=== PATIENT | female | born 1975 | race Caucasian/White ===

== ENCOUNTER 2023-10-10 10:46 | Outpatient (OUT) | payer BC, SELFPAY ==
--- NOTE | 2023-10-10 10:49 | VEIN_ITS ---
Patient Name: SHADI ORTIZ MR#: [id number] : 1975 Exam Date: 10/10/2023 Ordering Doctor: DR Dom Bowen . RADIOLOGY REPORT PROCEDURE: VC EXT VENOUS REFLUX KRISTEN LMTD COMPARISON: None. INDICATIONS: Venous stasis I87.8 TECHNIQUE: Duplex imaging of the lower extremity to assess the deep and superficial venous system for the presence of deep or superficial venous incompetence and to document the location and severity of disease. The study includes evaluation of the great saphenous vein (GSV), anterior accessory saphenous vein (AASV) and small saphenous vein (SSV). Patient scanned in reverse Trendelenburg and standing. FINDINGS: RIGHT LOWER EXTREMITY: Saphenofemoral Junction Reflux: Yes 10.3mm 2.3 sec GSV: Diam (mm) Reflux/ Time (sec) Proximal Thigh 10.5 Yes 3.9 Mid Thigh 8.3 Yes 0.7 Distal Thigh 7.6 Yes 0.4 Prox Calf 5.8 Yes 1.2 Mid Calf 4.6 Yes 0.3 Saphenopopliteal Junction Reflux: 4.2mm Yes 1.0 SSV: Proximal Calf 5.0 Yes 0.5 Mid Calf 3.2 Yes 0.3 AASV: Proximal Thigh 7.3 Yes 1.0 Mid Thigh 4.3 Yes 0.6 Distal Thigh Thrombi: No acute or chronic thrombus. Compressibility: Normal. Flow: Moderate deep venous reflux. Preforator: Dist/medial lower leg measures 4.3 mm with 0.4s reflux. Tech Note: Incompetent varicose vein mid posterior lower leg varicose vein measures 4.7 mm with 1.1s reflux. Varicose vein proximal medial lower leg measures 3.2 mm with 0.6s reflux. Distal medial/anterior thigh varicose vein measures 4.0 mm with 0.5s reflux. LEFT LOWER EXTREMITY: Saphenofemoral Junction Reflux: Yes 9.0 mm 1.2 sec GSV: Diam (mm) Reflux/Time (sec) Proximal Thigh 10.8 Yes 1.0 Mid Thigh 7.1 Yes 1.1 Distal Thigh 6.6 Yes 0.4 Prox Calf 4.8 Yes 3.6 Mid Calf 4.2 Yes 2.4 Saphenopopliteal Junction Relux: 4.3 mm Yes 0.4 SSV: Proximal Calf 4.1 Yes 0.3 Mid Calf 3.6 Yes 0.3 AASV: Not present Thrombi: No acute or chronic thrombus. Compressibility: Normal. Flow: Moderate deep venous reflux. Receptionist Airline Lounge: Distal medial lower leg measures 4.4 mm with 2.7s reflux. Tech Note: Incompetent varicose vein distal medial thigh measures 4.0 mm with 0.9s reflux. Proximal medial lower leg varicose vein measures 4.8 mm with 2.0s reflux. CONCLUSION: 1. Moderate to severe bilateral venous insufficiency in the great saphenous veins with diligation and saphenofemoral junction reflux 2. Mild right small and anterior accessory saphenous veins 3. Moderate deep vein reflux 4. Bilateral incompetent varicose veins Dictated by: Adolph Browne MD on 10/10/2023 at 12:41 Approved by: Adolph Browne MD on 10/10/2023 at 12:43
== END 2023-10-10 10:47 | disposition home or self-care (01) ==
LOC: VC 10:46
PROVIDERS: PCP Family Medicine; Visit Provider Family Medicine
DX: I87.8 Other specified disorders of veins (principal); I87.2 Venous insufficiency (chronic) (peripheral); I83.93 Asymptomatic varicose veins of bilateral lower extremities
CPT/HCPCS: 93970

== ENCOUNTER 2023-10-10 11:49 | Outpatient (OUT) | payer BC, SELFPAY ==
[2023-10-10 12:22] LABS: Basophils Percent Auto 0.5 % (0.2-2.0); Eosinophils Absolute Auto 0.2 10^3/uL (0.0-0.7); Eosinophils Percent Auto 2.1 % (0.9-7.0); Hematocrit 41.7 % (36.0-48.0); Hemoglobin 13.7 g/dL (12.0-16.0); Immature Granulocytes Abs Auto 0.02 10^3/uL (0.00-0.03); Immature Granulocytes Pct Auto 0.2 % (0.0-0.5); Lymphocytes Absolute Auto 1.8 10^3/uL (1.2-3.8); Lymphocytes Percent Auto 21.5 % (20.5-60.0); Mean Corpuscular HGB Conc 32.9 g/dL (29.9-35.2); Mean Corpuscular Hemoglobin 29.2 pg (26.7-34.0); Mean Corpuscular Volume 88.9 fL (81.0-99.0); Mean Platelet Volume 9.2 fL (9.5-13.5); Monocytes Absolute Auto 0.6 10^3/uL (0.3-0.8); Monocytes Percent Auto 6.9 % (1.7-12.0); Neutrophils Absolute Auto 5.9 10^3/uL (1.4-6.5); Neutrophils Percent Auto 68.8 % (43.0-75.0); Platelet Count 183 10^3/uL (150-450); Red Blood Count 4.69 10^6/uL (4.20-5.40); Red Cell Distribution Width 12.3 % (11.0-15.0); White Blood Count 8.6 10^3/uL (4.0-11.0)
[2023-10-10 12:56] LABS: Alanine Aminotransferase 69 U/L (14-59); Albumin Globulin Ratio 0.9; Albumin Level 3.4 g/dL (3.4-5.0); Alkaline Phosphatase 109 U/L (46-116); Anion Gap 11.3; Aspartate Amino Transferase 73 U/L (15-37); BUN Creatinine Ratio 19.7; Bilirubin Total 0.7 mg/dL (0.2-1.0); Calcium 8.8 mg/dL (8.5-10.1); Carbon Dioxide 27.9 mmol/L (21.0-32.0); Chloride 103 mmol/L (98-107); Chol HDL Ratio 3.7; Cholesterol 204 mg/dL (<=200); Estimated GFR (African America >60 (>=60); Estimated GFR (Non-African Ame >60 (>=60); Free T3 3.06 pg/mL (2.18-3.98); Globulin 3.9 g/dL; Glucose 98 mg/dL (74-106); HDL Cholesterol 55 mg/dL (40-60); Potassium 4.2 mmol/L (3.5-5.1); Sodium 138 mmol/L (136-145); Thyroid Stimulating Hormone 1.217 uIU/mL (0.358-3.740); Total Protein 7.3 g/dL (6.4-8.2); Triglycerides 90 mg/dL (<=150)
[2023-10-10 12:57] LABS: Estimated Average Glucose 108 mg/dL; Glycohemoglobin A1C 5.4 % (4.5-6.2)
== END 2023-10-10 11:50 | disposition home or self-care (01) ==
LOC: LAB 11:50
PROVIDERS: PCP Family Medicine; Visit Provider Family Medicine
DX: Z00.00 Encounter for general adult medical examination without abnormal findings (principal); I87.8 Other specified disorders of veins; I87.2 Venous insufficiency (chronic) (peripheral); I83.93 Asymptomatic varicose veins of bilateral lower extremities; E78.5 Hyperlipidemia, unspecified; R73.09 Other abnormal glucose; Z12.12 Encounter for screening for malignant neoplasm of rectum; D64.9 Anemia, unspecified
CPT/HCPCS: 36415; 80053; 80061; 83036; 83525; 83540; 84436; 84443; 84481; 85025; 93970

== ENCOUNTER 2023-10-13 14:38 | Outpatient (OUT) | payer BC, SELFPAY ==
--- NOTE | 2023-10-13 14:45 | VEIN_ITS ---
Patient Name: SHADI ORTIZ MR#: [id number] : 1975 Exam Date: 10/13/2023 Ordering Doctor: DR Dom Bowen . RADIOLOGY REPORT PROCEDURE: VC [facility] EST [facility] - OFFICE VISIT INITIAL COMPARISON: None. PROGRESS NOTES: [age] year old female who presents with a 4 year history of lower extremity swelling, pain, muscle cramping. The patient's leg symptoms are symmetric bilaterally. There has been a progression of symptoms over time. This increases with prolonged leg dependency. The patient describes an improvement with rest, elevation, support stockings, and Tylenol. The patient denies any signs and symptoms to suggest arterial ischemia. The patient describes a family history varicose veins on paternal side. The patient has drinking and smoking history of occasional alcohol consumption; former smoker. Patient has a past medical history significant for hypertension, obesity. The patient denies a history of deep venous thrombus or pulmonary embolus. See separate history and physical for medication list. No prior treatment for varicose or spider veins. Current use of compression stockings. After review of nurse notes, history and physical exam I discussed at length the pathophysiology of venous hypertension and possible treatments, therapies and strategies available. We discussed at length the importance of elevating the lower extremities above the level of the heart, increased physical activity and compression stocking use. Ultrasound venous reflux study performed on October 10, 2023 was discussed at length with the patient. The report demonstrates abnormally dilated and incompetent right great saphenous vein, right anterior accessory saphenous vein, and left great saphenous vein. Left lower extremity dilated incompetent etcher photoengraving vein. Bilateral lower extremity incompetent branch saphenous varicosities. PHYSICAL EXAM: The right leg demonstrates no significant varicosities, a few scattered spider veins, no ulceration, marked edema, no skin discoloration. The left leg demonstrates no significant varicosities, a few scattered spider veins, no ulceration, marked edema, no skin discoloration. Both thighs, legs and feet were symmetrically warm to the touch. Good posterior tibial and dorsalis pedis pulses were present bilaterally. VEIN/VC Facility EST Comprehensive IMPRESSION: 1. Bilateral lower extremity venous insufficiency 2. Bilateral lower extremity varicose veins 3. Marked bilateral lower extremity subcutaneous edema 4. No flow significant arterial disease 5. CEAP: C3, EC, AP, SD PLAN: 1. Continued use of compression stockings 2. Elevated legs and increased physical activity symptomatic relief 3. Endovenous laser ablation of right great saphenous, left great saphenous, right small saphenous veins. 4. Microfoam chemical ablation of bilateral incompetent branch saphenous varicosities. Nurse notes, history and physical were reviewed and confirmed, see attached forms. The nurse was present throughout the physical exam and consultation Dictated by: Mitchell Tilley M.D. on 10/13/2023 at 15:56 Approved by: Mitchell Tilley M.D. on 10/13/2023 at 16:01
== END 2023-10-13 14:39 | disposition home or self-care (01) ==
LOC: VC 14:39
PROVIDERS: PCP Family Medicine; Visit Provider Family Medicine
DX: I87.2 Venous insufficiency (chronic) (peripheral) (principal)
CPT/HCPCS: G0463

== ENCOUNTER 2024-01-30 03:31 | Emergency (ER) | payer BC, SELFPAY ==
[2024-01-30 03:37] VITALS: BP 168/103; PULSE 102; TEMP 37.1; O2SAT 97; BMI 44.3
--- NOTE | 2024-01-30 03:55 | ED.FEMALEGU1 ---
HPI - Female Genitourinary General Chief complaint: Urogenital-Female Stated complaint: UTI Hematuria Time Seen by Provider: 01/30/24 03:40 Source: patient Mode of arrival: walk-in Limitations: no limitations History of Present Illness HPI Narrative: presents complaining of dysuria and flank pain. symptoms started 5 days ago. She took OTC medication to treat the discomfort and thought she was better. Now has flank pain. No fever but has hematuria and right flank pain Related Data Home Medications ?Medication ?Instructions ?Recorded ?Confirmed amlodipine 5 mg tablet 5 mg PO DAILY 01/30/24 01/30/24 carvedilol 25 mg tablet 25 mg PO Q12H 01/30/24 01/30/24 clonidine HCl 0.1 mg tablet 0.1 mg PO Q8H 01/30/24 01/30/24 phentermine 37.5 mg tablet 37.5 mg PO DAILY 01/30/24 01/30/24 Allergies Allergy/AdvReac Type Severity Reaction Status Date / Time No Known Drug Allergies Allergy Verified 01/30/24 03:42 Review of Systems ROS Status of ROS 10 or more systems reviewed and unremarkable except as noted in history and below [facility] Medical History (Updated 01/30/24 @ 05:29 by Darvin Pantoja MD) HTN (hypertension) ?I10 - Essential (primary) hypertension (ICD-10) Exam Constitutional Vital Signs, click to edit/add: Last Vital Signs Temp 98.8 F 01/30/24 03:37 Pulse 102 H 01/30/24 03:37 Resp 20 01/30/24 03:37 BP 168/103 H 01/30/24 03:37 Pulse Ox 97 01/30/24 03:37 O2 Del Method Room Air 01/30/24 03:37 Common normals: no apparent distress, average body habitus, oriented x3, no limitations, healthy appearing, alert and well nourished [facility] [place] Common normals: normocephalic and head/scalp atraumatic Eye Common normals: PERRL, EOMs intact bilaterally and conjunctivae normal Respiratory Common normals: normal respiratory effort, no retractions, no use of accessory muscles and clear to auscultation bilaterally Cardio Common normals: regular rate, regular rhythm, S1 normal heart sound and S2 normal heart sound GI Common normals: Normal to inspection, nondistended, normoactive bowel sounds present Other: right flank tenderness Extremity Common normals: normal to inspection and full ROM Neuro Common normals: oriented x3, CN's II-XII intact bilaterally, moves all extremities and no focal motor deficits Psych Appearance: grossly normal Course Vital Signs Vital signs: Vital Signs Temperature 98.8 F 01/30/24 03:37 Pulse Rate 102 H 01/30/24 03:37 Respiratory Rate 20 01/30/24 03:37 Blood Pressure 168/103 H 01/30/24 03:37 Pulse Oximetry 97 01/30/24 03:37 Oxygen Delivery Method Room Air 01/30/24 03:37 Temperature 98.8 F 01/30/24 03:37 Pulse Rate 102 H 01/30/24 03:37 Respiratory Rate 20 01/30/24 03:37 Blood Pressure 168/103 H 01/30/24 03:37 Pulse Oximetry 97 01/30/24 03:37 Oxygen Delivery Method Room Air 01/30/24 03:37 MDM - Female Genitourinary MDM Narrative Medical decision making narrative: presents with flank pain and UTI dysuria. CT without findings of stone or pyelo. UA positive and WBC elevated. Patient hydrated and also given dose of Rocephin and discharged home to followup with her doctor Lab Data Labs: Lab Results 01/30/24 01/30/24 Range/Units 03:47 04:12 WBC 14.2 H (4.0-11.0) 10^3/uL RBC 4.95 (4.20-5.40) 10^6/uL Hgb 15.0 (12.0-16.0) g/dL Hct 44.4 (36.0-48.0) % MCV 89.7 (81.0-99.0) fL MCH 30.3 (26.7-34.0) pg MCHC 33.8 (29.9-35.2) g/dL RDW 12.9 (11.0-15.0) % Plt Count 174 (150-450) 10^3/uL MPV 9.2 L (9.5-13.5) fL Neut % (Auto) 87.7 H (43.0-75.0) % Lymph % (Auto) 6.4 L (20.5-60.0) % [place] % (Auto) 4.4 (1.7-12.0) % Eos % (Auto) 0.8 L (0.9-7.0) % Baso % (Auto) 0.3 (0.2-2.0) % Neut # (Auto) 12.5 H (1.4-6.5) 10^3/uL Lymph # (Auto) 0.9 L (1.2-3.8) 10^3/uL [place] # (Auto) 0.6 (0.3-0.8) 10^3/uL Eos # (Auto) 0.1 (0.0-0.7) 10^3/uL Baso # (Auto) 0.0 (0.0-0.1) 10^3/uL Abs Immat Gran (auto) 0.05 H (0.00-0.03) 10^3/uL Imm/Tot Granulo (auto) 0.4 (0.0-0.5) % Sodium 136 (136-145) mmol/L Potassium 3.6 (3.5-5.1) mmol/L Chloride 100 (98-107) mmol/L Carbon Dioxide 25.7 (21.0-32.0) mmol/L Anion Gap 13.9 BUN 10.0 (7.0-18.0) mg/dL Creatinine 0.80 (0.55-1.02) mg/dL Est GFR ( Amer) >60 (>=60) Est GFR (Non-Af Amer) >60 (>=60) BUN/Creatinine Ratio 12.5 Glucose 114 H (74-106) mg/dL Calcium 8.9 (8.5-10.1) mg/dL Total Bilirubin 0.8 (0.2-1.0) mg/dL AST 27 (15-37) U/L ALT 52 (14-59) U/L Alkaline Phosphatase 124 H (46-116) U/L Total Protein 8.0 (6.4-8.2) g/dL Albumin 3.9 (3.4-5.0) g/dL Globulin 4.1 g/dL Albumin/Globulin Ratio 1.0 Lipase 26.0 (16.0-77.0) U/L Urine Color Lt. yellow (YELLOW) Urine Clarity Clear (CLEAR) Urine pH 7.5 (5.0-9.0) Ur Specific [place] 1.020 (1.005-1.025) Urine Protein Negative (NEG/TRACE) mg/dL Urine Glucose (UA) Negative (NEGATIVE) mg/dL Urine Ketones Negative (NEGATIVE) mg/dL Urine Occult Blood Small A (NEGATIVE) Urine Nitrite Negative (NEGATIVE) Urine Bilirubin Negative (NEGATIVE) Urine Urobilinogen 0.2 (0.2-1.0) EU/dL Ur Leukocyte Esterase Trace A (NEGATIVE) Urine RBC 2-5 A (0-2) #/HPF Urine WBC 20-50 A (NONE SEEN) #/HPF Ur Squamous Epith Cells Few A (NONE/RARE) #/LPF Urine Crystals None seen (None Seen) #/HPF Urine Bacteria Small A (NONE SEEN) #/HPF Urine Casts None seen (NONE SEEN) #/LPF Urine Mucus Small A (NONE SEEN) Ur Culture Indicated? Yes Imaging Data Abdominal x-ray: Radiologist's impression: ITS Impressions Abdomen/Pelvis CT 01/30/24 04:01 IMPRESSION: There is no renal calculus or obstructive uropathy. The 0.2 cm calcification near the central sinus fat of the left kidney is vascular. The urinary bladder is unremarkable. The liver is enlarged and fatty infiltrated measuring 19.7 cm in longitudinal dimension. There is mild splenomegaly measuring 14.1 cm in AP dimension. Nonobstructive bowel gas pattern with a moderate amount of stool within the colon. The appendix is unremarkable. There is no free air, free fluid or inflammatory reaction. There are a couple surgical clips within the left adnexa region. There is no surgical clip within the right adnexal region. Correlate with the surgical history. Electronically authenticated by: OMKAR ZAPATA Date: 01/30/2024 04:55 Discharge Plan Discharge Stand Alone Forms: Portal Instructions Chief Complaint: Urogenital-Female Clinical Impression: Urinary tract infection Patient Disposition: Home, Self-Care Prescriptions / Home Meds: No Action amlodipine 5 mg tablet 5 mg PO DAILY clonidine HCl 0.1 mg tablet 0.1 mg PO Q8H carvedilol 25 mg tablet 25 mg PO Q12H phentermine 37.5 mg tablet 37.5 mg PO DAILY Print Language: Maltese Instructions: Urinary Tract Infection in Women (ED) Additional Instructions: drink plenty of fluids and follow up with your doctor in 2-3 days for recheck Referrals: Dom Bowen MD [Primary Care Provider] - 1 week
--- OUTSIDE RECORDS SUMMARY | 2024-01-30 03:57 | XMS_ITS | CCD ---
Author Organization [facility] Care Team Providers Care Commercial Lease Administrator Name Role Phone NONE, XXXX Primary Care Physician Unavailab Ila Valle Primary Care Physician Braxton Chapa Attending Unavailable Braxton Chapa Attending Unavailable REFERRAL, SELF Referring Unavailable Jojo Burr Attending Unavailable Jojo Burr Admitting Unavailable CHANTELLE, DR COLÓN Attending Unavailable CHANTELLE, DR COLÓN Consulting Unavailable KAREN, DR LAMB Primary Care Unavailable CHANTELLE, DR COLÓN Admitting Unavailable Omkar Plummer Consulting Unavailable KAREN, DR LAMB Primary Care Unavailable CHANTELLE, DR COLÓN Admitting Unavailable CHANTELLE, DR COLÓN Attending Unavailable CHANTELLE, DR COLÓN Consulting Unavailable CHANTELLE, DR COLÓN Admitting Unavailable KAREN, DR LAMB Primary Care Unavailable CHANTELLE, DR COLÓN Attending Unavailable Medications Current Medications Medication Drug Class(es) Dates Sig (Normalized) Sig (Original) albuterol 0.83 mg/ml inhalation solution (1 source) beta2-Adrenergic Agonist Start: 07-05-2022 take 2.5 mg by inhalation every six hours for wheezing albuterol 0.083% Inh Rosario 3 mL 2.5 mg, 3 mL, Inhalation, q6hr for wheezing, 25 EA, Refill(s) 0, [facility]/pharmacy #[id number], 160, cm, 07/05/22 16:21:00 EST, Height/Length Dosing, 117.9, kg, 07/05/22 16:21:00 EST, Weight Dosing Start Date: 07/05/22 Status: Ordered brompheniramine maleate 0.4 mg/ml / dextromethorphan hydrobromide 2 mg/ml / pseudoephedrine hydrochloride 6 mg/ml oral solution (1 source) alpha-Adrenergic Agonist, Uncompetitive V-karyhq-I-aspartat e Receptor Antagonist, Sigma-1 Agonist Start: 07-05-2022 take 5 mL by mouth four times daily for cough and congestion Bromfed DM oral syrup 5 mL, Oral, QID for cough and congestion, 200 mL, Refill(s) 0, [facility]/pharmacy #[id number], 160, cm, 07/05/22 16:21:00 EST, Height/Length Dosing, 117.9, kg, 07/05/22 16:21:00 EST, Weight Dosing Start Date: 07/05/22 Status: Ordered buprenorphine 8 mg / naloxone 2 mg sublingual film (2 sources) Partial Opioid Agonist, Opioid Antagonist Start: 01-30-2020 Suboxone 8 mg-2 mg sublingual film SubLingual, BID, Refill(s) 0 Start Date: 01/30/20 Status: Ordered Colace (3 sources) Start: 01-30-2020 Colace Oral, BID, Refills(s) 0 Start Date: 01/30/20 Status: Ordered ibuprofen 600 mg oral tablet (3 sources) Nonsteroidal Anti-inflammatory Drug Start: 01-30-2020 take 1 tablet by mouth every six hours ibuprofen 600 mg Tab 600 mg = 1 tab(s), Oral, q6hr, # 15 tab(s), Refills(s) 0 Start Date: 01/30/20 Status: Ordered labetalol hydrochloride 300 mg oral tablet (3 sources) beta-Adrenergic Ely Start: 01-30-2020 take 1 tablet by mouth three times daily labetalol 300 mg Tab 300 mg = 1 tab(s), Oral, TID, Refills(s) 0 Start Date: 01/30/20 Status: Ordered predniSONE 50 mg oral tablet (1 source) Start: 07-05-2022 End: 07-10-2022 take 1 tablet by mouth once daily predniSONE 50 mg Tab 50 mg = 1 tab(s), Oral, Daily, X 5 day(s), # 5 tab(s), Refills(s) 0, Pharmacy: [facility]/pharmacy #[id number], 160, cm, 07/05/22 16:21:00 EST, Height/Length Dosing, 117.9, kg, 07/05/22 16:21:00 EST, Weight Dosing Start Date: 07/05/22 Stop Date: 07/10/22 Status: Ordered Completed/Discontinued Medications Medication Drug Class(es) Dates Sig (Normalized) Sig (Original) albuterol HFA 90 mcg/inh MDI (3 sources) Start: 11-22-2018 take 1 dose by inhalation four times daily albuterol HFA 90 mcg/inh MDI 2 puff(s), Inhalation, QID, 1 EA, Refill(s) 0 Start Date: 11/22/18 Status: Ordered Problems Active Problems Problem Classification Problem Date Documented Da te Episodic/Chronic Acute bronchitis (4 sources) Acute bronchitis, unspecified; Translations: [ACUTE BRONCHITIS UNSPECIFIED] Onset: 07-09-2022 Episodic Chronic obstructive pulmonary disease and bronchiectasis (6 sources) Chronic obstructive pulmonary disease with (acute) lower respiratory infection; Translations: [Chronic obstructive pulmonary disease with (acute) exacerbation] Onset: 10-06-2021 Chronic Chronic obstructive pulmonary disease and bronchiectasis (1 source) Bronchitis; Translations: [Bronchitis, not specified as acute or chronic] Onset: 07-05-2022 Episodic Congestive heart failure; nonhypertensive (1 source) Unspecified diastolic (congestive) heart failure; Translations: [UNSPECIFIED DIASTOLIC HEART FAILURE] Onset: 10-07-2021 Chronic Endometriosis (3 sources) Endometriosis (clinical) 10-19-2013 Chronic Essential hypertension (2 sources) Essential hypertension; Translations: [Essential (primary) hypertension] Onset: 03-05-2022 Chronic Fluid and electrolyte disorders (1 source) Hypokalemia; Translations: [HYPOKALEMIA] Onset: 07-19-2022 Episodic Hypertension complicating ; childbirth and the puerperium (3 sources) Pre-eclampsia 08-07-2014 Episodic Hypertension with complications and secondary hypertension (1 source) Hypertensive heart disease with heart failure; Translations: [HTN HEART DISEASE W/HEART FAIL] Onset: 10-07-2021 Chronic Nonspecific chest pain (1 source) Chest pain; Translations: [Chest pain, unspecified] Onset: 03-05-2022 Episodic Other lower respiratory disease (1 source) Acute respiratory distress; Translations: [ACUTE RESPIRATORY DISTRESS] Onset: 07-19-2022 Episodic Other lower respiratory disease (1 source) Shortness of breath; Translations: [SHORTNESS OF BREATH] Onset: 07-19-2022 Episodic Other screening for suspected conditions (not mental disorders or infectious disease) (1 source) Other specified abnormal findings of blood chemistry; Translations: [OTH SPEC ABNORMAL FINDINGS BLD CHEM] Onset: 07-19-2022 Episodic Other upper respiratory infections (1 source) Acute upper respiratory infection; Translations: [Acute upper respiratory infection, unspecified] Onset: 07-05-2022 Episodic Substance-related disorders (4 sources) Smoker; Translations: [Nicotine dependence, cigarettes, uncomplicated] Onset: 07-19-2022 08-07-2014 Chronic Comment on above: Added secondary to d ocumentation in Social History. Unclassified (1 source) CONTACT W/AND (SUSP) EXPOS COVID-19; Translations: [CONTACT W/AND (SUSP) EXPOS COVID-19] Onset: 07-19-2022 Urinary tract infections (3 sources) Urinary tract infectious disease 05-31-2010 Episodic Past or Other Problems Problem Classification Problem Date Documented Da te Episodic/Chronic Deficiency and other anemia (1 source) Anemia, unspecified; Translations: [ANEMIA UNSPECIFIED] Onset: 10-07-2021 Episodic Diabetes mellitus without complication (1 source) Other abnormal glucose; Translations: [OTHER ABNORMAL GLUCOSE] Onset: 10-07-2021 Episodic Unclassified (1 source) Exposure to 2019 novel coronavirus; Translations: [Contact with and (suspected) exposure to COVID19] Results Test Name Value Interpretation Reference Range Facility CBC AUTO DIFFon 07-10-2022 BASO # 0.0 103/ul Normal 0.0-0.1 [facility] Comment on above: Performed By: #### A 1C #### [facility] [address] [place] [address] Dr. Jojo Burr Basophils/100 WBC (Bld) 0.3 % Normal 0.2-2.0 [facility] Comment on above: Performed By: #### A 1C #### [facility] [address] [place] [address] Dr. Jojo Burr EO # 0.0 103/ul Normal 0.0-0.7 [facility] Comment on above: Performed By: #### A 1C #### [facility] [address] [place] [address] Dr. Jojo Burr Eosinophils/100 WBC (Bld) 0.0 % Critically low 0.9-7.0 [facility] Comment on above: Performed By: #### A 1C #### [facility] [address] [address] [address] Jojo Burr Erythrocyte distribution width (RBC) [Ratio] 12.5 % Normal 11.0-15.0 [facility] Comment on above: Performed By: #### A 1C #### [facility] [address] [address] [address] Jojo Burr Hematocrit (Bld) [Volume fraction] 41.7 % Normal 36.0-48.0 [facility] Comment on above: Performed By: #### A 1C #### [facility] [address] [address] [address] Jojo Burr Hemoglobin (Bld) [Mass/Vol] 13.8 g/dL Normal 12.0-16.0 [facility] Comment on above: Performed By: #### A 1C #### [facility] [address] [place] [address] Dr. Jojo Burr IG # 0.15 10e3/ul Critically high 0.00-0.03 [facility] Comment on above: Performed By: #### A 1C #### [facility] [address] [address] [address] Jojo Burr IG % 1.3 % Critically high 0.0-0.5 [facility] Comment on above: Performed By: #### A 1C #### [facility] [address] [address] [address] Jojo Burr LYMPH # 0.8 103/ul Critically low 1.2-3.8 [facility] Comment on above: Performed By: #### A 1C #### [facility] [address] [address] [address] Jojo Burr Lymphocytes/100 WBC (Bld) 7.0 % Critically low 20.5-60.0 [facility] Comment on above: Performed By: #### A 1C #### [facility] [address] [address] [address] Jojo Burr MANUAL DIFF REQ NO Normal [facility] Comment on above: Performed By: #### A 1C #### [facility] [address] [place] [address] Dr. Jojo Burr MCH (RBC) [Entitic mass] 29.6 pg Normal 26.7-34.0 [facility] Comment on above: Performed By: #### A 1C #### [facility] [address] [place] [address] Dr. Jojo Burr MCHC (RBC) [Mass/Vol] 33.1 g/dL Normal 29.9-35.2 [facility] Comment on above: Performed By: #### A 1C #### [facility] [address] [place] [address] Dr. Jojo Burr MCV (RBC) [Entitic vol] 89.5 fL Normal 81.0-99.0 [facility] Comment on above: Performed By: #### A 1C #### [facility] [address] [place] [address] Dr. Jojo Burr MONO # 0.4 103/ul Normal 0.3-0.8 [facility] Comment on above: Performed By: #### A 1C #### [facility] [address] [place] [address] Dr. Jojo Burr Monocytes/100 WBC (Bld) 3.4 % Normal 1.7-12.0 [facility] Comment on above: Performed By: #### A 1C #### [facility] [address] [place] [address] Dr. Jojo Burr NEUT # 10.3 103/ul Critically high 1.4-6.5 [facility] Comment on above: Performed By: #### A 1C #### [facility] [address] [place] [address] Dr. Jojo Burr Neutrophils/100 WBC (Bld) 88.0 % Critically high 43.0-75.0 [facility] Comment on above: Performed By: #### A 1C #### [facility] [address] [place] [address] Dr. Jojo Burr Platelet mean volume (Bld) [Entitic vol] 9.1 fL Critically low 9.5-13.5 [facility] Comment on above: Performed By: #### A 1C #### [facility] [address] [place] [address] Dr. Jojo Burr PLT 226 103/ul Normal 150-450 [facility] Comment on above: Performed By: #### A 1C #### [facility] [address] [place] [address] Dr. Jojo Burr RBC 4.66 106/ul Normal 4.20-5.40 [facility] Comment on above: Performed By: #### A 1C #### [facility] [address] [place] [address] Dr. Jojo Burr WBC 11.7 103/ul Critically high 4.0-11.0 [facility] Comment on above: Performed By: #### A 1C #### [facility] [address] [place] [address] Dr. Jojo Burr PROF 14(COMP METB)on 022 Albumin [Mass/Vol] 3.1 g/dL Critically low 3.4-5.0 [facility] Comment on above: Performed By: #### C MP #### [facility] [address] [place] [address] Dr. Jojo Burr Albumin/Globulin [Mass ratio] 0.8 {ratio} Normal [facility] Comment on above: Performed By: #### C MP #### [facility] [address] [place] [address] Dr. Jojo Burr ALP [Catalytic activity/Vol] 118 U/L Critically high 46-116 [facility] Comment on above: Performed By: #### C MP #### [facility] [address] [place] [address] Dr. Jojo Burr ALT [Catalytic activity/Vol] 79 U/L Critically high 14-59 [facility] Comment on above: Performed By: #### C MP #### [facility] [address] [place] [address] Dr. Jojo Burr Anion gap [Moles/Vol] 11.7 mmol/L Normal [facility] Comment on above: Performed By: #### C MP #### [facility] [address] [place], [place] [address] Dr. Jojo Burr AST [Catalytic activity/Vol] 31 U/L Normal 15-37 [facility] Comment on above: Performed By: #### C MP #### [facility] [address] [address] [address] Jojo Burr Bilirubin [Mass/Vol] 0.4 mg/dL Normal 0.2-1.0 [facility] Comment on above: Performed By: #### C MP #### [facility] [address] [address] [address] Jojo Burr Calcium [Mass/Vol] 8.7 mg/dL Normal 8.5-10.1 [facility] Comment on above: Performed By: #### C MP #### [facility] [address] [place] [address] Dr. Jojo Burr Chloride [Moles/Vol] 101 mmol/L Normal 98-107 [facility] Comment on above: Performed By: #### C MP #### [facility] [address] [place] [address] Dr. Jojo Burr CO2 [Moles/Vol] 29.8 mmol/L Normal 21.0-32.0 [facility] Comment on above: Performed By: #### C MP #### [facility] [address] [place] [address] Dr. Jojo Burr Creatinine [Mass/Vol] 0.68 mg/dL Normal 0.55-1.02 [facility] Comment on above: Performed By: #### C MP #### [facility] [address] [place] [address] Dr. Jojo Burr EGFR-AF FILIPINO >60 Normal >=60 [facility] Comment on above: Performed By: #### C MP #### [facility] [address] [place] [address] Dr. Jojo Burr EGFR-NON AF FILIPINO >60 Normal >=60 [facility] Comment on above: Performed By: #### C MP #### [facility] [address] [place] [address] Dr. Jojo Burr Globulin (S) [Mass/Vol] 3.8 g/dL Normal [facility] Comment on above: Performed By: #### C MP #### [facility] [address] [address] [address] Jojo Burr Glucose [Mass/Vol] 146 mg/dL Critically high 74-106 [facility] Comment on above: Performed By: #### C MP #### [facility] [address] [address] [address] Jojo Burr Potassium [Moles/Vol] 3.5 mmol/L Normal 3.5-5.1 [facility] Comment on above: Performed By: #### C MP #### [facility] [address] [address] [address] Jojo Burr Protein [Mass/Vol] 6.9 g/dL Normal 6.4-8.2 [facility] Comment on above: Performed By: #### C MP #### [facility] [address] [address] [address] Jojo Burr Sodium [Moles/Vol] 139 mmol/L Normal 136-145 [facility] Comment on above: Performed By: #### C MP #### [facility] [address] [address] [address] Jojo Burr Urea nitrogen [Mass/Vol] 15.0 mg/dL Normal 7.0-18.0 [facility] Comment on above: Performed By: #### C MP #### [facility] [address] [address] [address] Jojo Burr Urea nitrogen/Creatinine [Mass ratio] 22.1 mg/mg Normal [facility] Comment on above: Performed By: #### C MP #### [facility] [address] [address] [address] Jojo Burr BNPon 07-09-2022 Natriuretic peptide B (Bld) [Mass/Vol] 205.0 pg/mL Normal <=450.0 [facility] Comment on above: Performed By: #### C BCMAN #### [facility] [address] [address] [address] Jojo Burr CARDIAC CATINA 3-6on 2 CK [Catalytic activity/Vol] 144 U/L Normal 26-192 [facility] Comment on above: Performed By: #### Madhav NEAL #### [facility] [address] [place] [address] Dr. Jojo Burr CK.MB [Mass/Vol] 1.97 ng/mL Normal <=3.60 [facility] Comment on above: Performed By: #### Madhav NEAL #### [facility] [address] [place] [address] Dr. Jojo Burr HSTROP 9.0 pg/mL Normal 4.0-51.3 [facility] Comment on above: Result Comment: CUT- OFF POINTS HAVE BEEN ESTABLISHED BASED ON THE FOURTH UNIVERSAL DEFINITIONS OF MYOCARDIAL INFARCTION. THE UPPER REFERENCE LIMIT (URL) OF TROPONIN, DEFINED THE 99TH PERCENTILE OF cTnI DISTRIBUTION IN A REFERENCE POPULATION, HAS BEEN CONFIRMED THE DECISION THRESHOLD FOR [place] DIAGNOSIS. Performed By: #### Madhav NEAL #### [facility] [address] [place] [address] Dr. Jojo Burr CK [Catalytic activity/Vol] 131 U/L Normal 26-192 [facility] Comment on above: Performed By: #### Madhav NEAL #### [facility] [address] [place] [address] Dr. Jojo Burr CK.MB [Mass/Vol] 2.23 ng/mL Normal <=3.60 [facility] Comment on above: Performed By: #### C ÁNGEL #### [facility] [address] [place] [address] Dr. Jojo Burr HSTROP 7.8 pg/mL Normal 4.0-51.3 [facility] Comment on above: Result Comment: CUT- OFF POINTS HAVE BEEN ESTABLISHED BASED ON THE FOURTH UNIVERSAL DEFINITIONS OF MYOCARDIAL INFARCTION. THE UPPER REFERENCE LIMIT (URL) OF TROPONIN, DEFINED THE 99TH PERCENTILE OF cTnI DISTRIBUTION IN A REFERENCE POPULATION, HAS BEEN CONFIRMED THE DECISION THRESHOLD FOR TN DIAGNOSIS. Performed By: #### Madhav NEAL #### [facility] [address] [place] [address] Dr. Jojo Burr CARDIAC CATINA ADMITon 022 CK [Catalytic activity/Vol] 122 U/L Normal 26-192 [facility] Comment on above: Performed By: #### B SEAMAN, CMP, CMADM #### [facility] [address] [place] [address] Dr. Jojo Burr CK.MB [Mass/Vol] 2.40 ng/mL Normal <=3.60 [facility] Comment on above: Performed By: #### B SEAMAN, CMP, CMADM #### [facility] [address] [place] [address] Dr. Jojo Burr HSTROP 8.0 pg/mL Normal 4.0-51.3 [facility] Comment on above: Result Comment: CUT- OFF POINTS HAVE BEEN ESTABLISHED BASED ON THE FOURTH UNIVERSAL DEFINITIONS OF MYOCARDIAL INFARCTION. THE UPPER REFERENCE LIMIT (URL) OF TROPONIN, DEFINED THE 99TH PERCENTILE OF cTnI DISTRIBUTION IN A REFERENCE POPULATION, HAS BEEN CONFIRMED THE DECISION THRESHOLD FOR TN DIAGNOSIS. Performed By: #### B SEAMAN, CMP, CMADM #### [facility] [address] [place] [address] Dr. Jojo Burr LIZZY 70 ng/mL Normal 9-82 [facility] Comment on above: Performed By: #### B SEAMAN, CMP, CMADM #### [facility] [address] [place] [address] Dr. Jojo Burr CBC W MANUAL DIFFon 07-09-20 22 ATYPICAL LYMPH # Normal [facility] Comment on above: Performed By: #### C ÁNGEL #### [facility] [address] [place] [address] Dr. Jojo Burr ATYPICAL LYMPH % Normal [facility] Comment on above: Performed By: #### C BCMAN #### [facility] [address] [place] [address] Dr. Jojo Burr BAND # Normal 0.0-0.3 [facility] Comment on above: Performed By: #### C DEVONMAN #### [facility] [address] [place] [address] Dr. Jojo Burr BAND % Normal 0-5 [facility] Comment on above: Performed By: #### C DEVONMAN #### [facility] [address] [address] [address] Jojo Burr BASOM # 0.00 103/ul Normal 0.00-0.10 [facility] Comment on above: Performed By: #### C BCKACI #### [facility] [address] [place] [address] Dr. Jojo Burr BASOM % 0.0 % Critically low 0.2-2.0 [facility] Comment on above: Performed By: #### C BCMAN #### [facility] [address] [place] [address] Dr. Jojo Burr BLAST # Normal [facility] Comment on above: Performed By: #### C ÁNGEL #### [facility] [address] [place] [address] Dr. Jojo Burr BLAST % Normal [facility] Comment on above: Performed By: #### C ÁNGEL #### [facility] [address] [place] [address] Dr. Jojo Burr CORRECTED WBC Normal 4.0-11.0 [facility] Comment on above: Performed By: #### C ÁNGEL #### [facility] [address] [place] [address] Dr. Jojo Burr EOS # 0.00 103/ul Normal 0.00-0.70 [facility] Comment on above: Performed By: #### C ÁNGEL #### [facility] [address] [place] [address] Dr. Jojo Burr EOS% 0.0 % Critically low 0.9-7.0 [facility] Comment on above: Performed By: #### C BCKACI #### [facility] [address] [place] [address] Dr. Jojo Burr HCT 43.4 % Normal 36.0-48.0 [facility] Comment on above: Performed By: #### C BCKACI #### [facility] [address] [place] [address] Dr. Jojo Burr HGB 14.6 g/dl Normal 12.0-16.0 [facility] Comment on above: Performed By: #### C ÁNGEL #### [facility] [address] [address] [address] Jojo Burr LYMPHM # 0.42 103/ul Critically low 1.20-3.80 [facility] Comment on above: Performed By: #### C ÁNGEL #### [facility] [address] [address] [address] Jojo Burr LYMPHM% 4.0 % Critically low 20.5-60.0 [facility] Comment on above: Performed By: #### C ÁNGEL #### [facility] [address] [place] [address] Dr. Jojo Burr MCH 30.0 pg Normal 26.7-34.0 [facility] Comment on above: Performed By: #### C ÁNGEL #### [facility] [address] [place] [address] Dr. Jojo Burr MCHC 33.6 g/dl Normal 29.9-35.2 [facility] Comment on above: Performed By: #### C ÁNGEL #### [facility] [address] [place] [address] Dr. Jojo Burr MCV 89.3 fL Normal 81.0-99.0 [facility] Comment on above: Performed By: #### C ÁNGEL #### [facility] [address] [place] [address] Dr. Jojo Burr METAMYELOCYTE # Normal [facility] Comment on above: Performed By: #### C ÁNGEL #### [facility] [address] [place] [address] Dr. Jojo Burr METAMYELOCYTE % Normal [facility] Comment on above: Performed By: #### C ÁNGEL #### [facility] [address] [address] [address] Jojo Burr MONOM# 0.53 103/ul Normal 0.30-0.80 [facility] Comment on above: Performed By: #### C ÁNGEL #### [facility] [address] [place] [address] Dr. Jojo Burr MONOM% 5.0 % Normal 1.7-12.0 [facility] Comment on above: Performed By: #### C ÁNGEL #### [facility] [address] [address] [address] Jojo Burr MPV 9.0 fL Critically low 9.5-13.5 [facility] Comment on above: Performed By: #### C ÁNGEL #### [facility] [address] [address] [address] Jojo Burr MYELOCYTE # Normal [facility] Comment on above: Performed By: #### C ÁNGEL #### [facility] [address] [address] [address] Jojo Burr MYELOCYTE % Normal [facility] Comment on above: Performed By: #### C ÁNGEL #### [facility] [address] [place] [address] Dr. Jojo Burr NRBC Normal [facility] Comment on above: Performed By: #### C ÁNGEL #### [facility] [address] [place] [address] Dr. Jojo Burr PLT 246 103/ul Normal 150-450 [facility] Comment on above: Performed By: #### C ÁNGEL #### [facility] [address] [address] [address] Jojo Burr RBC 4.86 106/ul Normal 4.20-5.40 [facility] Comment on above: Performed By: #### C ÁNGEL #### [facility] [address] [place] [address] Dr. Jojo Burr RDW 12.7 % Normal 11.0-15.0 [facility] Comment on above: Performed By: #### C ÁNGEL #### [facility] [address] [place] [address] Dr. Jojo Burr SEG # 9.55 103/ul Critically high 1.40-6.50 [facility] Comment on above: Performed By: #### C ÁNGEL #### [facility] [address] [address] [address] Jojo Burr SEG % 91.0 % Critically high 43.0-75.0 [facility] Comment on above: Performed By: #### C BCMAN #### [facility] [address] [address] [address] Jojo Burr WBC 10.5 103/ul Normal 4.0-11.0 [facility] Comment on above: Performed By: #### C BCMAN #### [facility] [id number] Jojo Burr CULTURE BLOODon 07-09-2022 Microscopic examination of blood, culture Culture Observations: NO GROWTH AT 5 DAYS. Normal [facility] Comment on above: Performed By: #### C BCMAN #### [facility] [address] [address] [address] Jojo Burr Microscopic examination of blood, culture Culture Observations: NO GROWTH AT 5 DAYS. [facility] Comment on above: Performed By: #### C BCMAN #### [facility] [address] [address] [address] Jojo Burr CULTURE SPUTUMon 07-09-2022 CULTURE SPUTUM Culture Observations: NORMAL RESPIRATORY BRANDON. Normal [facility] Comment on above: Performed By: #### C BCMAN #### [facility] [address] [place] [address] Dr. Jojo Burr Coding Summary.on 07-09-2022 Coding Summary. [id number]+PGhlYWQ+PE1 WQJFtC68blMYmnI9QM9 mRVJ9RPOGETCGSGH8UZ G3xiAW6CJpcU2OlbcCq SakxbCCxPG02LGp1LKH 4vZvyZXvnmD9naHHtC7 a3WkPeJG08bX47UCfeT QIpRhI3HfAvbuuznZCa Z2ktNnJlqVIpJkt+PHR hYmxlIHdpZHRoPScxMD VlCjWjnPreQD6oPy8rV GVyLWNvbGxhcHNlOiBj r9gqTUEvFUdxGY5soGh dU6XvrTO5UEZsr7l9Ca 48dHI+GPIaTUX3eIfcE Ldxj855EcGkj4nmUNV7 pBQbOBqoEZW8R49kb6B 9BTFmIUDcFLU4jTS3xZ 0ijIpprbvxL9QcpQFpF nR3ZRU2rCWmqT9kuXcu jalfqD1eIgc+Z11WET3 ANPPLGS6QAks9B0LlAh wvdHI+LZ08JMBxKF19d RNohZPzh0smcAw2LjCo HROjHPP6wOgqOByzg5X lEZZyU19iuBZoa1D2LI UdcWdrkCSxMsDnuHU3c Q8lHAgebzbnh2asovhc Kguca4pbhu17oA77H72 tNPvpPRXvEAF2IJKzJJ PptQqijp9chP4pHb3+I Xqth6dno2uxsCy0WrWb VVBbtpKgoSsgDJJ6x6F kQc95K2KcoYoul8HzTt r2zg63vLPms6P6qWE9C JnqKONqsS2lOEysGqC7 AVJvMwKabA38kZWzWNs gJg7reZhehGjvJN1iOG XwptudXGYjwB0xKBMbq HJiyXcxZL6uJZVqhtqd r999McZnPRG2PKVkqKP zW1IyaG7mZiLoAHGfWF ZhS2UhnVYySAqjM071N NsrYbU9FZMmhdHqA3Ue OMXfpWluIkZ8o1Z9Ve1 Ui0TvdzwsRAC6NKlqKK DrNpMyEcBfMdK1V4YyZ cg9SUPngGwmTT8wT9Tn CACusxlaamlvtTE3HBK lGZVzdB04jWQyKCnxEq 4gh8I5m344CSNhWVGak E14Rf5rkOvuCRVxoRBI cX8icvtac5msooppBkZ rQEUhWGw3GLy5ZDArtI faIxVsMFS0GoE3VUL9l TGefZ2azLaimlydmL9e Oyc+H48ibD5aEIT1VDC 3ovlsXTPlezNjEI71KL 45L6PsElxsfSQllLL+P OCvguVbaMruBB3oFfJo a2lpe9VzBPteV8MnPXH pHRiyPcv8XRVoQZN8fH B9nA9kYJCmNAuxo1A5x ME5O5OvylRnlu0gy9vi NUJaJWkeQ37zlATel6B 9CYJpaEB0RHQkmVhqEh OidG70Zgy+PGNvbGdyb 4BcRzznv2aow1ftzSu9 IjMwJSIgdmFsaWduPSJ 1v6OkMh24P60oCRuhOU RoPSIxNSUiIHZhbGlnb b6iqI0bGa9+PGNvbCB3 fSU8fS3eGQMgRwI4YWk qI541IgNnaTGqAqrvx5 fkv4fotFm1OrBpOKBvo xUtySqfVGO4t8DzVq12 Y41fOLbcVVZkCPEhCGB lLGKveDlzpm5myG2jFv 8+UC0zt9uvlr70rE50f HI+KCBgHCL3yCgyTRri MTIfnG1bPVaeMkU8YHX xEiPgeD35uBRcKFemDs 7xcKkbxKkkWH7sUFUep jauj657OrGpc4pzSBKm lVSoLRmlSMD1E00gg1W 7OUCwIQBcIEU0gXA4kU 1hbGlnbjogbGVmdDsgd mHjuUwdCFytURzgR790 IHRvcDsnPlBhdGllbnQ xPtQtAIg2K3EjYqv4GI WtzResBV9mtFNwPTuoG t3kdLpnvIqaTH8qXJNk lgpxt631LaLwp3chGAY ziOUlMUxeGBP9N68oi6 V0ZUXlPLZpHHX8xJZ5t F1taXdioycqeAQiaKdm yfMggUheVAaxFUvyH30 6IHRvcDsnPkJpcnRoIE CaeYY3WE79HQ29tMOrj 4Z8bTJ2P0RvHUGutxqw qahnuQU2OUVyKSWjyQ7 7Zj6saIdmVf9aKCJkYZ J9JUIcwSWnH6DwkO3eO rFaPALkIWXvX0TubKRd PThoW997HXvwWsQ6RCI fcjWeN6IfAZTqcFjsId P1x0B4Fz4IH1Z2AM65I A38tGOnz2A5dKP2C5Ky TELoylhggolfkIJ5LMK uHRHkfS79Sf2fsWuqMg 1tDFFsICF1HTAiuKRwT 2YeiK6xPlTyEKXrZLWr F5BqcBMbANvmU042RIk uLyS4YGHdstYpN0CcYM LciQfmSjC3e9X1Du0NV Ue9XX39VM60rPRen2U0 fFK0F7QxYVJuqfeucfg kkTH5RKIuGFXowI50Cm 9whMzmDy5tAOZbUEG7K AGsdGDxE9DreN5gKuUx PEItJIPrZ0HkaZEgKMg jJ565LDceEmV2GDSeom AlF3LqTVArnQxxMhW4b 0T6Md4MVLZhQW01DSN8 iOF7SV04DF72H0BpHly vdGFibGU+PHRhYmxlIH dpZHRoPScxMDAlJyBzd EnqOH3zMq4aLXLkVHZx vXarjZNsEeVam4vpIZY mSPiuYV1kiAdgO0ZjkI G3AQMlc3a5De06B83nK 3JvdXA+BFQfwCE0rSH8 lL0oHvPoBaG9SEbjT26 8MkBvlZBzZzhwe7mrs1 nagYu7HfN3UBKxuuOdi ZdvOLH3m2BwPg67D03k IHdpZHRoPSIxNSUiIHZ mmEndns0ljZ1dXw2+PG LpvUY5yCV1fN3dUfYdA hO2BNpvQ614YeGphRXa Yniwh8ucl3khpWz1CdH tPHZgguWlpGbxPZP6n4 SvJr11X1JlcBsop6JbS xs0fr70rVPaw5D3iSP2 X1YsAHFshgbglXSizIa sHT9oGUUzpyjcSJTigO 6qIXQfT9i3AnPaVzO7H EdsK0BuhoD0WELynSGm LHaqDSQ2N11tc1Z9WIE bLHZrHMZ2tSZ8jC6bdJ lnbjogbGVmdDsgdmVyd RprVTujHSeuS213ZTOa lVpxWMGjzB4gGREgdNQ leKbwDK6kSIIeilepNk EDOFNGMT5jYBUVK92cE DwvdGQ+YLCcFKC0pSgh OXahXZNpzD4dQMJtT2z 3YrFaMmZ8QZaiS1AkKD TzyzkwUg44sY2oSxWfU zL0PJljV2CpeyP8VAZd xAMdNJjnRFG3X53vk6E 0AMDcYOFhWKC0hIK5mG 1hbGlnbjogbGVmdDsgd yZpyCvwWBorHCswE238 TMPbiZsoDuEtDkN2KtM 0JlM5W2GzRla5XDKbjZ kfAM6beKMbQCvqNt7ki OfsfXdcCC9cTZKtoskp KGAokL7lWSMraXPhtAn lIV6mUBSghonki071Dh PdIYS7UJNdtOTfN9Stp I7cBpHgULRqVJLtI1Wk qYUiLTldI159RNedVkS 8KMLvpsKaO8GxVUAmtB fhXkM2v9Z3Yl83GwMQP WFyczwvdGQ+PHRkIHN0 kEidDCqpDFCnyY1lEFF wK6c2FiYeRfJ4MYeoG3 InMSZloklkZc60dZ9nW cPiRdK2FDkvI6GnxuM1 DXJeoRJlKEkkFMY1J65 rh6C1REOnZVHcBAB9wN K3jG1kcSlasrfljKEma DsgdmVydGljYWwtYWxp G600NKGkbFmvVvRxlZP sZTwvdGQ+RIIyHFQ8zT tvDIlhYIYybZ3pTNUoI 3r9TpVaWsN3TUozS7Zm UOKycldfGv19bQ4wYlC pIdH9FSybM4LpybH8YA KklXXfQQriOXN8V36ia 8J1EJSjSSGeUFF0qTL2 nP3kpFqyldylbMOekRs gdmVydGljYWwtYWxpZ2 46IHRvcDsnPkVtZXJnZ G3mwUolvJH+VN88ur20 O2LfHlcmTmb7JVYtRKY 2zDZ9jM9fSGEtJShxn2 D5yFZ7N3TfzkDykr2uf 3lwWEPdJQhdX89mjEEh i7N2IRYhlHB6NQPboAd hSoFljL05Ikx+PGNvbG dkh3EjXmoeg1uvs8tze Ll9KiQhEGUumdCqyRgq NBS3g4GpLo52Z50aJYw pZHRoPSIzMCUiIHZhbG rdnl0pvV9qHl3+PGNvb YC2hOO1vE8tRwBqUpB4 PKwiM226QkQelLCsDwj jl6yyz2rrpLj9ZqZlQC LtcfSbxJonMAL9i5KpJ y64O5JczNjxh5VtBfi3 ad94wGRvi8L6nDI3R2Q hZGRpbmctbGVmdDogMC 4xCMSmkkmmZULnrU7rA WLzA3d5LvGkQjJ3YEfk E3MiuyY4BUWkhDJeTUP zfKDVwX3qaqwdf7gazt uiHtSaEVVgNBo9ARd1O ZKvjHiuWoPeSMS6XzI3 OQR4dIFxkC5ayNlfvvq hrD3pFqc+DKj3z1onyL HaDI4egAV3AY78VY19m NCen1U1oEF9F6VsHQPu cuuxasetrZK0PZGhWFH ymR60Lq1nbFjiXv2qOB BrALW6TKLggEPoF9Goh R5lEfIiWEKyFVBoE8Uj lMWgPQtmW214AFhiQiC 0DMCsuuBmP3TcIPLcmK diUsV0j8D6Iq2CDI04E A12AK42lLUzs4B8aCY3 T6HiETVtmrfwctildLR 4PDWiOYFncV49Ex6qbC pnEe7pVEQgCBV4BCXtf BKbC9FzyT3zFfFpVSGp FOMiJ6KakPWvKDliD24 5OFcjIkH1CLZnzzZmD2 VdWWIrjXvfClD6x9L9B o7EGj28TF81EA92eRCn z9Y2yKZ1U4TbAAGhztj eeiqilHK8AQDfGVFcoO 02Ml5soThjNv0kPHDoF WE4ERGsaNXxI6FelJ9w LbTaXPHkYFHgG3CutEY aVIgoY109QCenRfX9WF TufjTwU8LtGEZvbMkaJ mL0e1M8Gr2QNMespru5 T7NzUglrvGH+AU16ZVE iUD34zMEipBPec1typU o7IdLkJDSdHXC8vReqQ Qpaw8FqQEQsG58xvUAm c2U6 (more content not included)... Normal [facility] Covid-19 PCR (CVDTB)on SARS-CoV-2 (COVID-19) RNA NATHAN+probe Ql (Unsp spec) Not detected Normal NOT DETECTED [facility] Comment on above: Result Comment: When diagnostic testing is negative, the possibility of a false negative should be considered in the context of a patient's recent exposures and the presence of clinical signs and symptoms consistent with SARS-CoV-2. This test is not yet approved or cleared by the [place] FDA. When there are no FDA-approved or cleared tests available, and other criteria are met, FDA can make tests available under an emergency access mechanism called an Emergency Use Authorization (EUA). The EUA for this test is supported by the [place] of Health and Human Service's declaration that circumstances exist to justify the emergency use of in vitro diagnostics for the detection and/or diagnosis of the virus that causes COVID-19. This EUA will remain in effect for the duration of the COVID-19 declaration justifying emergency of IVDs, unless it is terminated or revoked by the FDA (after which the test may no longer be used). Performed By: #### C VDTB #### [facility] [address] [place] [address] Dr. Jojo Burr INFLUENZA A AND B [facility] [place] 07-09 [facility] SEE BELOW Normal [facility] Comment on above: Result Comment: Nega tive for Flu A protein angiten. Infection due to Flu A cannot be ruled out. Flu A angiten in the sample may be below the detection limit of the test. Performed By: #### C BCMAN #### [facility] [address] [place] [address] Dr. [facility] Normal [facility] Comment on above: Result Comment: Nega tive for Flu B protein antigen. Infection due to Flu B cannot be ruled out. Flu B antigen in the sample may be below the detection limit of the test. Performed By: #### C BCMAN #### [facility] [address] [place] [address] Dr. Jojo Burr INFLUENZA A AG Negative Normal NEGATIVE SEE COMMENT [facility] Comment on above: Performed By: #### C BCMAN #### [facility] [address] [place] [address] Dr. Jojo Burr INFLUENZA B AG Negative Normal NEGATIVE SEE COMMENT [facility] Comment on above: Performed By: #### C BCMAN #### [facility] [address] [place] [address] Dr. Jojo Burr INTERNAL CONTROLS Within Normal Limits Normal Within Normal Limits [facility] Comment on above: Performed By: #### C BCMAN #### [facility] [address] [address] [address] Jojo Burr LACTATE/LACTIC ACIDon 2021 Lactate [Moles/Vol] 1.2 mmol/L Normal 0.4-1.9 [facility] Comment on above: Performed By: #### C ÁNGEL #### [facility] [address] [address] [address] Jojo Burr Lactate [Moles/Vol] 1.9 mmol/L Normal 0.4-1.9 [facility] Comment on above: Performed By: #### L ACT #### [facility] [address] [address] [address] Jojo Burr PROF 14(COMP METB)on 022 Albumin [Mass/Vol] 3.5 g/dL Normal 3.4-5.0 [facility] Comment on above: Performed By: #### B SEAMAN, CMP, CMADM #### [facility] [address] [address] [address] Jojo Burr Albumin/Globulin [Mass ratio] 0.9 {ratio} Normal [facility] Comment on above: Performed By: #### B SEAMAN, CMP, CMADM #### [facility] [address] [address] [address] Jojo Burr ALP [Catalytic activity/Vol] 147 U/L Critically high 46-116 [facility] Comment on above: Performed By: #### B SEAMAN, CMP, CMADM #### [facility] [address] [address] [address] Jojo Burr ALT [Catalytic activity/Vol] 105 U/L Critically high 14-59 [facility] Comment on above: Performed By: #### B SEAMAN, CMP, CMADM #### [facility] [address] [place] [address] Dr. Jojo Burr Anion gap [Moles/Vol] 9.5 mmol/L Normal [facility] Comment on above: Performed By: #### B SEAMAN, CMP, CMADM #### [facility] [address] [place] [address] Dr. Jojo Burr AST [Catalytic activity/Vol] 51 U/L Critically high 15-37 [facility] Comment on above: Performed By: #### B SEAMAN, CMP, CMADM #### [facility] [address] [address] [address] Jojo Burr Bilirubin [Mass/Vol] 0.5 mg/dL Normal 0.2-1.0 [facility] Comment on above: Performed By: #### B SEAMAN, CMP, CMADM #### [facility] [address] [address] [address] Jojo Burr Calcium [Mass/Vol] 8.7 mg/dL Normal 8.5-10.1 [facility] Comment on above: Performed By: #### B SEAMAN, CMP, CMADM #### [facility] [address] [address] [address] Jojo Burr Chloride [Moles/Vol] 101 mmol/L Normal 98-107 [facility] Comment on above: Performed By: #### B SEAMAN, CMP, CMADM #### [facility] [address] [address] [address] Jojo Burr CO2 [Moles/Vol] 29.8 mmol/L Normal 21.0-32.0 [facility] Comment on above: Performed By: #### B SEAMAN, CMP, CMADM #### [facility] [address] [place] [address] Dr. Jojo Burr Creatinine [Mass/Vol] 0.73 mg/dL Normal 0.55-1.02 [facility] Comment on above: Performed By: #### B SEAMAN, CMP, CMADM #### [facility] [address] [address] [address] Jojo Burr EGFR-AF FILIPINO >60 Normal >=60 [facility] Comment on above: Performed By: #### B SEAMAN, CMP, CMADM #### [facility] [address] [place] [address] Dr. Jojo Burr EGFR-NON AF FILIPINO >60 Normal >=60 [facility] Comment on above: Performed By: #### B SEAMAN, CMP, CMADM #### [facility] [address] [address] [address] Jojo Burr Globulin (S) [Mass/Vol] 4.0 g/dL Normal [facility] Comment on above: Performed By: #### B SEAMAN, CMP, CMADM #### [facility] [address] [address] [address] Jojo Burr Glucose [Mass/Vol] 155 mg/dL Critically high 74-106 T [facility] Comment on above: Performed By: #### B SEAMAN, CMP, CMADM #### [facility] [address] [address] [address] Jojo Burr Potassium [Moles/Vol] 3.3 mmol/L Critically low 3.5-5.1 [facility] Comment on above: Performed By: #### B SEAMAN, CMP, CMADM #### [facility] [address] [place] [address] Dr. Jojo Burr Protein [Mass/Vol] 7.5 g/dL Normal 6.4-8.2 [facility] Comment on above: Performed By: #### B SEAMAN, CMP, CMADM #### [facility] [address] [address] [address] Jojo Burr Sodium [Moles/Vol] 137 mmol/L Normal 136-145 [facility] Comment on above: Performed By: #### B SEAMAN, CMP, CMADM #### [facility] [address] [address] [address] Jojo Burr Urea nitrogen [Mass/Vol] 11.0 mg/dL Normal 7.0-18.0 [facility] Comment on above: Performed By: #### B SEAMAN, CMP, CMADM #### [facility] [address] [address] [address] Jojo Burr Urea nitrogen/Creatinine [Mass ratio] 15.1 mg/mg Normal [facility] Comment on above: Performed By: #### B SEAMAN, CMP, CMADM #### [facility] [address] [address] [address] Jojo Burr SPUTUM GRAM STAINon 07-09-20 COMMENTS Normal [facility] Comment on above: Performed By: #### C BCMAN #### [facility] [address] [address] [address] Jojo Burr DIPHTHEROIDS Normal [facility] Comment on above: Performed By: #### C BCMAN #### [facility] [address] [address] [address] Jojo Burr EPITHELIALS <25 Normal [facility] Comment on above: Performed By: #### C BCMAN #### [facility] [address] [address] [address] Jojo Burr FUNGAL ELEMENTS Normal [facility] Comment on above: Performed By: #### C BCMAN #### [facility] [address] [address] [address] Jojo Burr GRAM NEG BACILLI Normal [facility] Comment on above: Performed By: #### C BCMAN #### [facility] [address] [address] [address] Jojo Burr GRAM NEG DIPPLOCOCCI Normal [facility] Comment on above: Performed By: #### C BCMAN #### [facility] [address] [address] [address] Jojo Burr GRAM POS BACILLI Normal [facility] Comment on above: Performed By: #### C BCMAN #### [facility] [address] [address] [address] Jojo Burr GRAM POSITIVE COCCI FEW Normal [facility] Comment on above: Performed By: #### C BCMAN #### [facility] [address] [address] [address] Jojo Burr WBC (Bld) [#/Vol] 10*3/uL Normal [facility] Comment on above: Performed By: #### C BCMAN #### [facility] [address] [address] [address] Jojo Burr XR CHEST 2 Von 07-09-2022 XR CHEST 2 V EXAM: XR CHEST 2 V HISTORY: PLEURODYNIA , shortness of breath and COPD. COMPARISON: None. TECHNIQUE: Upright PA and lateral chest x-ray FINDINGS: The heart is not enlarged and the vasculature is not distended. There is no clear evidence of a focal infiltrate, effusion or pneumothorax. The osseous structures are grossly intact. IMPRESSION: No apparent acute infiltrate or evidence of cardiac decompensation. Direct comparison with a previous study may be helpful in determining the chronicity of these findings. Electronically authenticated by: OMKAR PLUMMER Date: 2022-07-09 14:54 Normal [facility] Consent for Treatmenton 06-09 Consent for Treatment [id number] 2 [id number] D5#[id number]:127 Normal [facility] Discharge Instructionson Discharge Instructions [id number] 11 [id number] 26#1.00CD:127 Normal [facility] ED Clinical Summaryon 2021 ED Clinical Summary [place] [id number] ED Clinical Summary Person Information Name: SHADI KEY Annamaria/[facility] Age: 47 Years : 1975 Sex: Female Language: Thai PCP: Ila Metz DO Marital Status: Single Phone: [phone] Visit Id: Visit Reason: Shortness of breath; Rib/trunk pain-swelling; Body aches; Cough; SOB, COUGH Speciality: Acuity: 3 Enc Type: Emergency Med Service: Emergency Arrival: 07/05/2022 16:04:36 Discharge: 07/05/2022 17:16:50 LOS: 000 01:12 Checkin: 07/05/2022 16:04:36 Checkout: 07/05/2022 17:16:50 Dispo Type: Home (Routine DC) EVENTS: Event Name Event Status Request Date/Time Start Date/Time Complete Date/Time Arrive Complete 07/05/2022 16:04:36 07/05/2022 16:04:36 07/05/2022 16:04:36 Document Home Meds Request 07/05/2022 16:04:36 Triage Complete 07/05/2022 16:04:36 07/05/2022 16:21:28 07/05/2022 16:21:28 Pending Labs Complete 07/05/2022 16:14:34 07/05/2022 17:03:39 Lab Complete 07/05/2022 16:14:34 07/05/2022 17:03:39 Swab Complete 07/05/2022 16:14:34 07/05/2022 16:58:17 EKG Complete 07/05/2022 16:16:39 07/05/2022 16:20:36 Bed Assign Complete 07/05/2022 16:21:39 07/05/2022 16:21:39 07/05/2022 16:21:39 Dr Exam Complete 07/05/2022 16:21:39 07/05/2022 16:27:09 07/05/2022 16:27:09 RN Exam Complete 07/05/2022 16:21:39 07/05/2022 16:37:24 07/05/2022 16:37:24 X-Ray Complete 07/05/2022 16:24:59 07/05/2022 16:34:17 07/05/2022 16:53:11 Registration Complete 07/05/2022 16:27:09 07/05/2022 16:50:24 07/05/2022 16:50:24 Dr Exam Complete 07/05/2022 16:30:45 07/05/2022 16:30:45 07/05/2022 16:30:45 Reg Complete Request 07/05/2022 16:50:24 Reg Bed Request Complete 07/05/2022 16:50:24 07/05/2022 16:50:24 07/05/2022 16:50:24 Wet Read Request 07/05/2022 16:53:11 Discharge Complete 07/05/2022 17:10:51 07/05/2022 17:16:54 07/05/2022 17:16:54 Transfer Complete 07/05/2022 17:16:54 07/05/2022 17:16:54 07/05/2022 17:16:54 ADDRESS: [address] [place] [phone] PHYS DOC NOTES: MEDICAL INFORMATION: Prescriptions Given: New Medications [id number], [address] [place], [place] [id number], [phone] brompheniramine/dex tromethorphan/PSE (Bromfed DM oral syrup) 5 Milliliter By Mouth 4 times a day as needed for cough and congestion. Refills: 0. predniSONE (predniSONE 50 mg Tab) 1 Tablets By Mouth every day for 5 Days. Refills: 0. Medications to Continue Taking That Have Changed [id number], [address] [place], [place] [id number], [phone] START: albuterol (albuterol 0.083% Inh Rosario 3 mL) 3 Milliliter Inhalation every 6 hours as needed for wheezing. Refills: 0. Other Medications START: albuterol (albuterol HFA 90 mcg/inh MDI) 2 Puffs Inhalation 4 times a day. Refills: 0. Medications to Continue with No Changes Other Medications buprenorphine-nalox one (Suboxone 8 mg-2 mg sublingual film) Sublingual 2 times a day. docusate (Colace) By Mouth 2 times a day. ibuprofen (ibuprofen 600 mg Tab) 1 Tablets By Mouth every 6 hours. Refills: 0. labetalol (labetalol 300 mg Tab) 1 Tablets By Mouth 3 times a day. PATIENT EDUCATION INFORMATION: Instructions: Acute Bronchitis, Adult; Upper Respiratory Infection, Adult, [id number] Follow up: With: Address: When: Ila Metz [address], Sandra [address], [facility] [address] [place] [address] Business (1) In 3 days 07/08/2022 Comments: Follow-up with your primary care provider in 3 to 5 days. If symptoms worsen, do not improve, or new symptoms arise please report back to emergency department for further evaluation DIAGNOSIS: Bronchitis; Upper respiratory infection Normal [facility] ED Note-Physicianon 07-05-20 22 ED Note-Physician Basic Information Time Seen: Lisandro FUNK, Aba Yates. 07/05/2022 16:27 Chief Complaint Pt reports cough for 4 days. Increasing SOB since yesterday. Pt reports it feels like she broke a bunch of ribs from coughing so hard. denies fever. History of Present Illness 47-year-old female reports to the emergency department with a chief complaint of a cough for the last 4 days. She reports that she has an having increasing shortness of breath due to her coughing that started since yesterday. She states that she is getting sore in her ribs because of her coughing so hard. She denies any fevers or chills. States that the cough and body aches are just the worst that she is ever had. She denies any nausea or vomiting. Reports that she has been taking ibuprofen, Tylenol, [id number] medications, and has also been using a nebulizer treatment that her son has. She reports that she does have a history of smoking. Denies any chest pain. Denies any history of blood clots or being on any blood thinners. Review of Systems A 10 point review of systems is negative except as noted above. Medical and Surgical History: Reviewed and noted Social history: Lives at home Family History: Reviewed. Tobacco: User Physical Exam Vitals & Measurements T: 36.8 ?C(Oral) HR: 91(Peripheral) RR: 22 BP: 182/66 SpO2: 95% HT: 160.02 cm WT: 117.9 kg BMI: 46.04 General: The patient appears well and in no apparent distress. Patient is resting comfortably in chair. Afebrile Skin: Warm, dry, no pallor noted. Head: Normocephalic, atraumatic Neck: No JVD Eye: PERRLA, EOMI ENT: Moist mucus membranes. Pharynx pink moist with no erythema or exudates. Bilateral TMs intact with no bulging or erythema. Cardiovascular: Regular rate normal peripheral perfusion. Radial pulses +2 bilaterally Respiratory: No respiratory distress no accessory muscle use no obvious audible wheezing. Lung sounds clear to auscultation Chest Wall: no deformity Musculoskeletal: normal ROM, no deformity, no swelling GI: No obvious distention soft nontender nondistended no guarding rebounding or rigidity Neurological: A&O moves all extremities equal strength and symmetry Psychiatric: Cooperative and appropriate Medical Decision Making A 47-year-old female reports emergency department with chief complaint of cough, worsening shortness of breath, and body aches that have been going on since last 4 days. On physical examination of the patient, she is afebrile, and has no risk factors for any pulmonary embolism that would cause her shortness of breath. The patient was PERC negative and PE/DVT was essentially ruled out at this low risk patient. We did do EKG, that showed no ST elevation. Patient appears to be having a upper respiratory type infection based on her complaints and her symptoms. We did do a chest x-ray as well as influenza and COVID swabs. Influenza and COVID swabs were negative. Chest x-ray revealed possible bronchitis, but no evidence of pneumonia. I did discuss this with the patient. Based on the patient's symptoms, I did write a prescription for prednisone for a steroid to help her with her bronchitis and her coughing. Also ordered Bromfed for the patient to help with cough. Patient did want a refill for albuterol for nebulizer, so I did order that. Follow-up with your primary care provider in 3 to 5 days. If symptoms worsen, do not improve, or new symptoms arise please report back to emergency department for further evaluation. The patient was understanding and agreeable to plan moving forward. Assessment/Plan Bronchitis (J40: Bronchitis, not specified as acute or chronic) Upper respiratory infection (J06.9: Acute upper respiratory infection, unspecified) Orders: albuterol, 2.5 mg, 3 mL, Inhalation, q6hr for wheezing, 25 EA, Refill(s) 0, [facility]/pharmacy #[id number], 160, cm, 07/05/22 16:21:00 EST, Height/Length Dosing, 117.9, kg, 07/05/22 16:21:00 EST, Weight Dosing brompheniramine/dex tromethorphan/PSE, 5 mL, Oral, QID for cough and congestion, 200 mL, Refill(s) 0, [facility]/pharmacy #[id number], 160, cm, 07/05/22 16:21:00 EST, Height/Length Dosing, 117.9, kg, 07/05/22 16:21:00 EST, Weight Dosing predniSONE, 50 mg = 1 tab(s), Oral, Daily, X 5 day(s), # 5 tab(s), Refills(s) 0, Pharmacy: [facility]/pharmacy #[id number], 160, cm, 07/05/22 16:21:00 EST, Height/Length Dosing, 117.9, kg, 07/05/22 16:21:00 EST, Weight Dosing Disposition Plan Patient Discharge Condition Stable Discharge Disposition To home Discharge Prescription List Prescriptions albuterol 0.083% Inh Rosario 3 mL, 2.5 mg= 3 mL, Inhalation, q6hr, PRN Bromfed DM oral syrup, 5 mL, Oral, QID, PRN predniSONE 50 mg Tab, 50 mg= 1 tab(s), Oral, Daily Follow-up With When Contact Information Ila Metz In 3 days 07/08/2022 EST [address] [place] [address]- Business (1) Additional Instructions: Follow-up with your primary care provider in 3 to 5 days. If symptoms worsen, do not improve, or new symptoms arise please report ba (more content not included)... Normal [facility] Comment on above: Result Comment: Elec tronically Signed By: Aba Mcmahon PA-C\.br\Date and Time Signed: 07/05/22 18:20 EST\.br\Electronically Co-Signed By: Braxton Chapa DO\.br\Date and Time Co-Signed: 07/05/22 18:44 EST ED Patient Education Noteon 07-05-2022 ED Patient Education Note Infectious Disease Upper Respiratory Infection, Adult An upper respiratory infection (URI) affects the nose, throat, and upper air passages. URIs are caused by germs (viruses). The most common type of URI is often called the common cold. Medicines cannot cure URIs, but you can do things at home to relieve your symptoms. URIs usually get better within 7?10 days. Follow these instructions at home: Activity ? Rest as needed. ? If you have a fever, stay home from work or school until your fever is gone, or until your doctor says you may return to work or school. ? You should stay home until you cannot spread the infection anymore (you are not contagious). ? Your doctor may have you wear a face mask so you have less risk of spreading the infection. Relieving symptoms ? Gargle with a salt-water mixture 3?4 times a day or as needed. To make a salt-water mixture, completely dissolve ??1 tsp of salt in 1 cup of warm water. ? Use a cool-mist humidifier to add moisture to the air. This can help you breathe more easily. Eating and drinking ? Drink enough fluid to keep your pee (urine) pale yellow. ? Eat soups and other clear broths. General instructions ? Take nozl-bfd-prdymkt and prescription medicines only as told by your doctor. These include cold medicines, fever reducers, and cough suppressants. ? Do not use any products that contain nicotine or tobacco. These include cigarettes and e-cigarettes. If you need help quitting, ask your doctor. ? Avoid being where people are smoking (avoid secondhand smoke). ? Make sure you get regular shots and get the flu shot every year. ? Keep all follow-up visits as told by your doctor. This is important. How to avoid spreading infection to others ? Wash your hands often with soap and water. If you do not have soap and water, use hand monitoring tech. ? Avoid touching your mouth, face, eyes, or nose. ? Cough or sneeze into a tissue or your sleeve or elbow. Do not cough or sneeze into your hand or into the air. Contact a doctor if: ? You are getting worse, not better. ? You have any of these: ? A fever. ? Chills. ? Brown or red mucus in your nose. ? Yellow or brown fluid (discharge)coming from your nose. ? Pain in your face, especially when you bend forward. ? Swollen neck glands. ? Pain with swallowing. ? White areas in the back of your throat. Get help right away if: ? You have shortness of breath that gets worse. ? You have very bad or constant: ? Headache. ? Ear pain. ? Pain in your forehead, behind your eyes, and over your cheekbones (sinus pain). ? Chest pain. ? You have long-lasting (chronic) lung disease along with any of these: ? Wheezing. ? Long-lasting cough. ? Coughing up blood. ? A change in your usual mucus. ? You have a stiff neck. ? You have changes in your: ? Vision. ? Hearing. ? Thinking. ? Mood. Summary ? An upper respiratory infection (URI) is caused by a germ called a virus. The most common type of URI is often called the common cold. ? URIs usually get better within 7?10 days. ? Take ekwv-ebx-wtzexrw and prescription medicines only as told by your doctor. This information is not intended to replace advice given to you by your health care provider. Make sure you discuss any questions you have with your health care provider. Document Released: 01/10/2009 Document Revised: 08/02/2019 Document Reviewed: 03/17/2018 [employer] Patient Education ? 2019 [employer]. Pulmonary Medicine Acute Bronchitis, Adult Acute bronchitis is sudden (acute) swelling of the air tubes (bronchi) in the lungs. Acute bronchitis causes these tubes to fill with mucus, which can make it hard to breathe. It can also cause coughing or wheezing. In adults, acute bronchitis usually goes away within 2 weeks. A cough caused by bronchitis may last up to 3 weeks. Smoking, allergies, and asthma can make the condition worse. Repeated episodes of bronchitis may cause further lung problems, such as chronic obstructive pulmonary disease (COPD). What are the causes? This condition can be caused by germs and by substances that irritate the lungs, including: ? Cold and flu viruses. This condition is most often caused by the same virus that causes a cold. ? Bacteria. ? Exposure to tobacco smoke, dust, fumes, and air pollution. What increases the risk? This condition is more likely to develop in people who: ? Have close contact with someone with acute bronchitis. ? Are exposed to lung irritants, such as tobacco smoke, dust, fumes, and vapors. ? Have a weak immune system. ? Have a respiratory condition such as asthma. What are the signs or symptoms? Symptoms of this condition include: ? A cough. ? Coughing up clear, yellow, or green mucus. ? Wheezing. ? Chest congestion. ? Shortness of breath. ? A fe (more content not included)... Normal [facility] ED Patient Summaryon 022 ED Patient Summary [address] [address] Patient Discharge Instructions Person Information Name: SHADI KEY Age: 47 Years Arrival Date: 07/05/2022 16:04:36 Discharge Diagnosis: Bronchitis; Upper respiratory infection Primary Care Physician: Ila Metz DO Provider Information Primary Provider: Braxton Chapa DO Advanced Sample Patternmaker:None The exam and treatment you received in the Emergency Department were for an urgent problem and are not intended as complete care. It is important that you follow up with a doctor, nurse practitioner, or physician?s compliance assistant for ongoing care. If your symptoms become worse or you do not improve as expected and you are unable to reach your usual health care provider, you should return to the Emergency Department. We are available 24 hours a day. SHADI KEY has been given the following list of patient education materials, prescriptions and follow-up instructions: Follow-up Instructions: With: Address: When: Ila Metz [address], [facility] [address], [facility] [address] [place] [address] [email or web address] ([employer] In 3 days 07/08/2022 Comments: Follow-up with your primary care provider in 3 to 5 days. If symptoms worsen, do not improve, or new symptoms arise please report back to emergency department for further evaluation In the event that this physician does not participate in your insurance network, please consult with your insurance company to find a nearby participating provider. Patient Education Materials: Acute Bronchitis, Adult; Upper Respiratory Infection, Adult, Tzzx-gw-Trco A MESSAGE TO ALL PATIENTS REGARDING OPIOIDS PRESCRIPTION OPIOIDS: WHAT YOU NEED TO KNOW Prescription opioids can be used to help relieve dnsbndqe-tq-yiypds pain and are often prescribed following a surgery or injury, or for certain health conditions. These medications can be an important part of the treatment but also come with serious risks. It is important to work with your healthcare provider to make sure you are getting the safest, most effective care. WHAT ARE THE RISKS AND SIDE EFFECTS OF OPIOID USE? Prescription opioids carry serious risks of addiction and overdose, especially with prolonged use. An opioid overdose, often marked by slowed breathing, can cause sudden . The use of prescription opioids can have a number of side effects as well, even when taken as directed: ? Tolerance?meaning you might need to take more of the medication for the same pain relief ? Physical dependence?meaning you have symptoms of withdrawal when a medication is stopped ? Increased sensitivity to pain ? Constipation ? Nausea, vomiting, and dry mouth ? Sleepiness and dizziness ? Confusion ? Depression ? Low levels of testosterone that can result in lower sex drive, energy, and strength ? Itching and sweating RISKS ARE GREATER WITH: ? History of drug misuse, substance use disorder, or overdose ? Mental health conditions (such as depression or anxiety) ? Sleep apnea ? Older age (65 years and older) ? Avoid alcohol while taking prescription opioids. Also, unless specifically advised by your health care provider, medications to avoid include: ? Benzodiazepines (such as Xanax or Valium) ? Muscle relaxants (such as Soma or Flexeril) ? Hypnotics (such as Ambien or Lunesta) ? Other prescription opioids KNOW YOUR OPTIONS Talk to your health care provider about ways to manage your pain that don?t involve prescription opioids. Some of these options may actually work better and have fewer risks and side effects. Options may include: ? Pain relievers such as acetaminophen, ibuprofen, and naproxen ? Some medication that are also used for depression or seizures ? Physical therapy and exercise ? Cognitive behavioral therapy, a psychological, goal-directed approach, in which patients learn how to modify physical, behavioral, and emotional triggers of pain and stress. IF YOU ARE PRESCRIBED OPIOIDS FOR PAIN: ? Never take opioids in greater amounts or more often than prescribed. ? Follow up with your primary health care provider. o Work together to create a plan on how to manage your pain. o Talk about ways to help manage your pain that don?t involve prescription opioids. o Talk about any and all concerns and side effects. ? Help prevent misuse and abuse o Never sell or share prescription opioids. o Never use another person?s prescription opioids. ? Store prescription opioids in a secure place and out of reach of others (this may include visitors, children, friends, and family). ? Safely dispose of unused prescription opioids: Find your community drug take-back program or your pharmacy mail-back program, or flush them down the toilet, following guidance from the Food and Drug Administration (www.fda.gov/Drugs/ ResourcesForYou). ? Visit www.cdc.gov/drug (more content not included)... Normal [facility] Influenza A&B Agon 2 Influenzae A Ag Negative Normal Negative [facility] Comment on above: Performed By: #### 1 [id number], [id number] ####[facility] [address] [place] [address] Influenzae B Ag Negative Normal Negative [facility] Comment on above: Result Comment: Test sensitivity and specificity vary for age group, specimen type, antigen types, and prevalence of disease. Test results must be evaluated in conjunction with other clinical data available to the physician. Individuals who received nasally administered Influenza A vaccine may have positive test results up to 3 days after vaccination. Performed By: #### 1 [id number], [id number] ####[address] [place] [address] MICRO OTHER TESTSOrdered By: Charisse Celeste on 07-05-2022 Influenzae A Ag Negative (07/05/22 4:37 PM) Normal Negative [facility] Influenzae B Ag Negative (07/05/22 4:37 PM) Normal Negative [facility] Rapid COV Int NEG Ctl Pass (07/05/22 4:37 PM) Normal [facility] Rapid COV Int POS Ctl Pass (07/05/22 4:37 PM) Normal [facility] SARS-CoV+SARS-CoV-2 (COVID-19) Ag IA.rapid Ql (Resp) Not Detected (07/05/22 4:37 PM) Normal Not Detected [facility] Sero Rapid COVID Antigen ([facility]on 07-05-2022 Rapid COV Int NEG Ctl Pass Normal [facility] Comment on above: Performed By: #### 1 [id number], [id number] ####[address] [address] Rapid COV Int POS Ctl Pass Normal [facility] Comment on above: Performed By: #### 1 [id number], [id number] ####[address] [address] SARS-CoV+SARS-CoV-2 (COVID-19) Ag IA.rapid Ql (Resp) Not detected Normal Not Detected [facility] Comment on above: Result Comment: The [employer]? System for Rapid Detection of SARS-CoV-2 is a chromatographic digital immunoassay intended for the direct and qualitative detection of SARS-CoV-2 nucleocapsid antigens in nasal swabs from individuals who are suspected of COVID-19 by their healthcare provider within the first five days of the onset of symptoms. Negative results should be treated as presumptive, do not rule out SARS-CoV-2 infection and should not be used as the sole basis for treatment or patient management decisions, including infection control decisions. Negative results should be considered in the context of a patient?s recent exposures, history and the presence of clinical signs and symptoms consistent with COVID-19, and confirmed with a molecular assay, if necessary, for patient management. For in vitro diagnostic use. In the [place], only for use under an Emergency Use Authorization. In the [place], this test has not been FDA cleared or approved; this test has been authorized by FDA under an EUA for use by authorized laboratories; use by laboratories certified under the CLIA, 42 U.S.C. ?263a, that meet requirements to perform moderate, high, or waived complexity tests and at the Point of Care (POC), i.e., in patient care settings operating under a CLIA Certificate of Waiver, Certificate of Compliance, or Certificate of Accreditation. This test has been authorized only for the detection of proteins from SARS-CoV-2, not for any other viruses or pathogens; and, in the [facility], this test is only authorized for the duration of the declaration that circumstances exist justifying the authorization of emergency use of in vitro diagnostics for detection and/or diagnosis of the virus that causes COVID-19 under Section 564(b)(1) of the Act, 21 U.S.C. ? 360bbb-3(b)(1), unless the authorization is terminated or revoked sooner. Performed By: #### 1 [id number], [id number] ####[place] [address] ADMITTED TO INTENSIVE CARE UNIT FOR CONDITION OF INTEREST:FIND:PT: NO Normal [facility] Comment on above: Performed By: #### 1 [id number], [id number] ####[place] [address] EMPLOYED IN A HEALTHCARE SETTING:FIND:PT: NO Normal [facility] Comment on above: Performed By: #### 1 [id number], [id number] ####[place] [address] FIRST TEST FOR CONDITION OF INTEREST:FIND:PT: NO Normal [facility] Comment on above: Performed By: #### 1 [id number], [id number] ####[place] [address] HAS SYMPTOMS RELATED TO CONDITION OF INTEREST:FIND:PT: YES Normal [facility] Comment on above: Performed By: #### 1 [id number], [id number] ####[address] [place] [address] HOSPITALIZED FOR CONDITION OF INTEREST:FIND:PT: NO Normal [facility] Comment on above: Performed By: #### 1 [id number], [id number] ####[address] [place] [address] STATUS:FIND:PT: NO Normal [facility] Comment on above: Performed By: #### 1 [id number], [id number] ####[place] [address] RESIDES IN A [facility] SETTING:FIND:PT: NO Normal [facility] Comment on above: Performed By: #### 1 [id number], [id number] ####[place] [address] XR Chest 2 Viewson 2 XR Chest 2 Views Exam Date/Time: 07/05/2022 16:53 EST Reason for Exam: Difficulty breathing Report IMPRESSION: POSSIBLE BRONCHITIS. NO EVIDENCE OF PNEUMONIA. CLINICAL INFORMATION: Difficulty breathing cough COMPARISON: 03/05/2022. FINDINGS: PA and lateral views of the chest were obtained. Heart and mediastinum appear normal. Bronchovascular markings are somewhat prominent. The lungs appear clear without pneumonic infiltrates or consolidation. Visualized bony thorax and remainder of the chest appears unremarkable. FINAL REPORT Dictated: 07/05/2022 4:59 pm Chase Ram M.D. Signed (Electronic Signature): 07/05/2022 4:59 pm Signed by: Chase Ram M.D. Transcribed by: JORJE Technologist: HUNTER Velez [facility] Coding Summary.on 03-10-2022 Coding Summary. CD:[id number] XZn9dFi+PGhlYWQ+PE1 HUENvR62qsYKveM4UM4 yJXC5AOWVQTNPIDP1LO I2euEZ8VNofH3FcrnPh RbtwlCRrCF81DEl9RIA 4nOmdKBwunH3xwCKnN7 v8JyPqHF62lW97AIncS LAoVeN1KaPpzlkxgAFo I8qmDaDcoQZdYem+PHR hYmxlIHdpZHRoPScxMD QnXxYhvTfzMR3jLh8rK GVyLWNvbGxhcHNlOiBj m5usINJjXZkdCG3koUp sB5KnxDM9TGHgd8w6Kg 48dHI+ZAErPBH3cEluA Apdu724MwPlc0azDPX5 aGGrZAgdRKE4W03rj8S 6MLJqGDFaVVA1aVB9dU 7rqMhcpsbgZ9DinPAdK sI6LYJ5sHToxF4pcUyh tilyuD0xJqv+C44FZJ8 NAZGRGK9UIxa0Y4YtMs wvdHI+UW56APVyNQ83u OWwvIMza9uayMp6XcRo UQPyQFU5aYubHMntg1C tFLLfX43ctRWlx8D9HS DsqXmxiCJzQrRkkFG3a G5tVJmhtsufy4tvkuyo Syuoj2jvrq43aZ89D05 kTVdzMAOkMSN8FIOwHN ZfrEbciw5rgX1jNu9+I Judd3yzy4cvzOb5MhHk EGRlodXtbEqaBVV6k4Z gSx38Z7OsdQqrs5BkXe l2lo27tGSka6D9rNG6X ZjoNTBorO2nYBuyIeS0 PQJqGwDxqD01rYQuEIz mNx3ijXxidVeqCD9zAL AffqidKXAziB3bFJMcl UWqvAdbRP5bYKVwqaax u854AkNrGBB4VXHwsUE aB3BgcW7qJnCoLLRbYD MyK5WwqFSjCPypI493T DsrCxM4NKTklnCcL4Lz KJTbuBrxItF2u8F2Wi1 Qy2LiuyfbOWL8ABueTH Z4FaImUtXuOqH5J3KsB ut0NTSksEcqKL8eT2Jm ZKNpdqeyrrudjIN1PAU lAYUjmP73mLApUQxhBd 0ni4I1c294LNAxKVDcz Y01Sz5qiHhaWDSiwTWA hL4pzzvvo1eqmqubZeK dWGZyUOp0LYm6HARyjO adCyXnBTH4NsI6DBC1y LLcsE5vcFxwwbmphT9m Oyc+Z98yaE8wIAE3GBA 7jnhhRSKrpxYlWQ75XT 27I6SpZhvrsSFqbCN+P UCpnhOynBjqYN8zFhHs n6jkc2ClKDzjA4NfISD tPIstMpo4TBOsFPI6xP T0xV3bZUUjWFaco0R5o PS9Y2UrusIhqy4wc9kl RADdJQpzG87orEQoc7H 0ZIVnsDF2GBUxhHroVu SjcO51Abx+PGNvbGdyb 4KuAcfob4vak2fdaHg6 IjMwJSIgdmFsaWduPSJ 8v0SbHs11W71yICsoGB RoPSIxNSUiIHZhbGlnb o8ndQ1mDk8+PGNvbCB3 rKN8uL9zIANiIeX5TJq uG652OfUsiDHoNlbmu5 pxb4blqGl4KvWdSBUvz lVuvOsoPFJ7a3OuNe39 C03bNDlmMFCzDUIrNIH gUEZihFphqt3nwN0zZz 8+DH7mq3enzw04kB27y HI+ERVmHQO5oQsgGWlg ADVhbZ4aNRngAxZ6IPZ oRfPpcB78oNLwJUxbCy 6yzMmvrEwtKG0sXREka avxc962QiOoc7ocIBRj aHKeJWiqSLP8K99zm6W 3KHUcZVLvABS4qND0wX 1hbGlnbjogbGVmdDsgd qLooCdeEQxnAMvgB242 IHRvcDsnPlBhdGllbnQ hLpBdTMv4R0NjGkh6NX UitIftWQ3rgEFcFWejW z9ghEyanUpgQL7mVAMi mzxdf565McRoz9qrZHR kbGNdFLoaSMW5Q31hy6 J8VWEoNLEtUSR1cJD2l E4tuTmvydnzaTDfcCaj loIxzLcqMEllOPkcQ97 6IHRvcDsnPkJpcnRoIE KhfGM2NA40RR00qLAvc 5S1xTH6O9YwQXApdzof drqnuJX3ZLDjVVVwgY8 7Vs5tdUnqEf1vFKYjGG P8SFCmcYXoP8PavE4mQ vVySKWnNLNjZ6QycKFl FIppU104CMpgCnT5FDX rkyJpP7YaIIGfuKihSw O1f1L0Hi9YV9U5NH23I E25vEQce1H2sPR0M4Xp STSgcmswtrbeqES5QVR jJTJdwT64Fi0szYfqQf 4gIJKdTUS4XVZwwMYdI 9WgyI4hQjNpALVnUEHd E9WxcHRzJFbfC042ZVu uLzH6HBUgxgHgY5QsIR CztShoXaU2w0W8Za6OI Ai4XU99WG18lAWit6L2 pPX2G4OwMUXomcwnhim ehTU0QBTyNTLzaF26As 4jrNovIf4gPGCvWFO6F ANonDLrM4HedD6zSvFp LUVdFPXcK9XtyYViXWf eN885FUdlDuW2ERDkgc JaT4LtHUYzkYdkXnZ7n 3Y7Di5RKSSxIE08JOJ2 oSJ1EJ11ZB93R7SvSle vdGFibGU+PHRhYmxlIH dpZHRoPScxMDAlJyBzd XibCB8sOp1wBYXdMRCt bNqcrGLwBbWgv4lvNYY uFVtuDO8ioOquZ6QcwZ K6HXXjp8t3Jg37U44iT 3JvdXA+YGSyaZN2rPK0 jC1bFvKjJlB0JCrgA87 0QqHqbUSdEimte6gvt1 bliCt1HhY3OECqrfRky XwdGPL7a4OnTz04G62f IHdpZHRoPSIxNSUiIHZ ncMgrgo0vvN9cMa6+PG TjpZT8qTL1iH8oDdMkV bU3CXnwR436AxEkvHYg Xneca0qsw3zzoKa6JrI uXIHsjaGufPgyNUG5j4 XsVs95R0WetSwmt9TtA mo2ba64vCOio6B2gWG9 H6DePXMalkaqmPDveBu cFZ5aGIYqpkfkCAMvmW 8kECRrH8n2CiYyChV8J SpoQ9TwmeM3CGUdxDSs SUxjTRI8Y54pu8J6TPA zMKVySGD0fYV6pX8htC lnbjogbGVmdDsgdmVyd JfwCNmqLXuwS862JJTm yBsqVEDnvS7vYICmcJX viThfHW2zLJNmopsmAt FAINOMNM4wXZUXB95kT DwvdGQ+VSVsRUC9mLxy CRhlFYSipH7bHZNnW8y 7YcEdVdW7KVsxQ6YaJB AfhblvYr53nD5pBbWvL iD5FHlkN1DlhpW1TYZs zQDsSRgaHRT3O96zr5C 5CLDfYBAaTAT8qYF3nQ 1hbGlnbjogbGVmdDsgd lLysYjkVLvgUTujG123 WHIjzIxbEoIgLwZ6GbZ 6AcZ3Q6MfRdd1MQWttO slCI4vaHXyRClaIx8vf KfwrStnAQ0vEHLqefww CPWsiD6yDZDfxBPdeOd dTF8nSERwfptla974Fj IoILB6OTJqxLGmJ8Evx G1xFsTlLETwETTdR2Vb dEGvKUbmV202PYidKyH 8WFSgkhLeK2UxYXLooH waOfI6t8O0Lm38XFDWR WFyczwvdGQ+PHRkIHN0 lPnmNPkgIDHciG8cUGQ oL2s4EcVeYaU4MOzqO3 LaCWTmnmfuOy79sE2pX kDpJdF1ADedO2OtmxP4 UBFonHZeXYclOXZ9G72 xs0I6RXYxETTgYPT2bY E5fI3tzIpaetdtqYPyn DsgdmVydGljYWwtYWxp P951OYOaeGkzDhOoxXK sZTwvdGQ+JYPlHKL5yT gqWPloXMAzvZ8qZSGaR 3s7SgClGlI0BDhdJ7Jx TICumuqoPk29qG5wCoH dBaZ7RRowX5DpveN8RL WebHTaUBumZZF6X73cj 4L6LDWeCOLsXDA1dZL6 lT5qyZqlvrdmtPRxiFc gdmVydGljYWwtYWxpZ2 46IHRvcDsnPkVtZXJnZ T3dwGoeyYQ+NR93iq37 K1DyWnnaLzl5FQCdWAZ 5iJY4zF8uIICnSTjrj0 Y8mEK0X8MqdaYxtb2qy 0idTGDaYNlrX76ykRKs b3H7DKFbuDI0WLGayYr uIiGywG51Bdh+PGNvbG zhl3ZjRzzhu7vsd6iut Fc4JlYcLWLmhxDfkPcv OBG8d9QsWr92H63pLSe pZHRoPSIzMCUiIHZhbG hwqe6pwK3cQh0+PGNvb YO9dFV3hT8fOtNmTtV8 DXgvX076ToDmkJHpWpt he9eoi7oblHv0TbJlXE LumqOpiFwrMOE0e2UnQ h40U5IslNmow9PbXdl1 yw74fDGjc6O6vGX4S9C hZGRpbmctbGVmdDogMC 8nEBOqoopbVNEymY0gR RQuT0a1PtWgIxG0TWcz X2YtrxM6KTYzsSPeMKB hhFMRxH8yseopx9gkqx yhElKnZMJvXZq7ETk2M ZPaxWtnEqVxJWA8RsN9 ZFH3nHQvmZ7zuFwbfky nzY7wWzq+MEh4j8sdeM PmZN4dfBL6RQ41YJ68o DCyc9Z2mKT4I1JyRXYw kklqpjzjlMT6IVRdINQ vaV13Uu4qiZzeXn0rKD DxSAG4WORscKVpY3Sqd P0sAbUxFHXjYYEgH1Ip vEVvKDnxP530VCzoAhM 4WLAztuSrM5FsYCPokY suUxS9d2G2Je8SEO73A G10PJ77yNEmm6H6vEQ2 B6WtOCJfvrxgtsbhuIS 9CEObKCHvvC37Gk2uqU ciLb5fNXVdJEH5OIJwz WBeW0TfwX7fMeImKCFz EGBfP8ZqdYLbVVscQ29 7FZglEtY5KXPkzzRvR0 SxRFBfcNvxShC5g2W6Q e5RRz37IQ20UJ35oZEr v4N8wDO8W9XyYUXfird embizcSG8PJZiLVUlbJ 76Rq3dbCqpHl9fTYGxI VA5RSQmdDVsP8BdsZ1p XgFcYKTeGICaZ9TuvRR wTBarL861HBdiOgG5BL QbtfFlZ5AzEEUdzNduC oT8z5I0Ga4TENoipbc9 C7NyPjfmoVP+WJ79BPJ dCL24zCYkhTBaa4gjmE f1SwKcBGXzIEZ5iYbrW Exnq0QrKSFsM08vvRHv c2U6 (more content not included)... Normal [facility] Auto Diffon 03-05-2022 Basophils/100 WBC (Bld) 0.7 % Normal 0.0-2.0 [facility] Comment on above: Order Comment: Order Added by Discern Expert. Performed By: #### 1 [id number] [address] [address] Basophils/Leukocytes Auto (Bld) [Pure # fraction] 0.1 E9/L Normal 0.0-0.2 [facility] Comment on above: Order Comment: Order Added by Discern Expert. Performed By: #### 1 [id number], 2978671, 6671650, 0946246, 8348755, 27964519, [id number] ####[address] [address] Eosinophils/100 WBC (Bld) 1.9 % Normal 0.0-8.0 [facility] Comment on above: Order Comment: Order Added by Discern Expert. Performed By: #### 1 1220380, 0306483, 6662777, 4561652, 6701767, 72907076, 70498525 ####[address] [address] Eosinophils/Leukocytes Auto (Bld) [Pure # fraction] 0.2 E9/L Normal 0.0-0.5 [facility] Comment on above: Order Comment: Order Added by Discern Expert. Performed By: #### 1 8045504, 2452267, 9018831, 0172640, 8817884, 28761917, 80983198 ####[address] [address] Lymphocytes/100 WBC (Bld) 20.9 % Normal 14.0-50.0 [facility] Comment on above: Order Comment: Order Added by Discern Expert. Performed By: #### 1 5124053, 6859421, 5075847, 6234266, 2239585, 72449929, 33733099 ####[address] [place] [address] Lymphocytes/Leukocytes Auto (Bld) [Pure # fraction] 2.4 E9/L Normal 1.0-4.0 [facility] Comment on above: Order Comment: Order Added by Discern Expert. Performed By: #### 1 3306782, 2163476, 7892558, 9359949, 4277073, 63293197, 75003539 ####[address] [place] [address] Monocytes/100 WBC (Bld) 6.5 % Normal 4.0-14.0 [facility] Comment on above: Order Comment: Order Added by Discern Expert. Performed By: #### 1 3780631, 7337172, 2203669, 3231934, 9057804, 30620036, 99120141 ####[address] [address] Monocytes/Leukocytes Auto (Bld) [Pure # fraction] 0.7 E9/L Normal 0.2-1.0 [facility] Comment on above: Order Comment: Order Added by Discern Expert. Performed By: #### 1 8262181, 9405220, 5602507, 0620316, 8331366, 33847595, 04063756 ####[address] [place] [address] Neutrophils/100 WBC (Bld) 70.0 % Normal 36.0-75.0 [facility] Comment on above: Order Comment: Order Added by Discern Expert. Performed By: #### 1 8208970, 1795214, 4072335, 0705271, 3550985, 65128233, 98918303 ####[address] [place] [address] Neutrophils/Leukocytes Auto (Bld) [Pure # fraction] 8.0 E9/L High 2.0-7.5 [facility] Comment on above: Order Comment: Order Added by Discern Expert. Performed By: #### 1 5017338, 8215270, 2449049, 2161354, 0069376, 81246599, 78293536 ####[facility] [address] [place] [address] BMPon 03-05-2022 Creatinine [Mass/Vol] 0.7 mg/dL Normal 0.5-1.3 [facility] Comment on above: Performed By: #### 1 7819519, 0130003, 7591715, 1026848, 7156012, 12625182, 01004645 ####[facility] [address] [place] [address] Urea nitrogen [Mass/Vol] 11 mg/dL Normal 5-21 [facility] Comment on above: Performed By: #### 1 7744499, 2619266, 7663107, 2714773, 4883433, 67775318, 76587982 ####[facility] [address] [place] [address] Urea nitrogen/Creatinine [Mass ratio] 16 No Units Normal 10-20 [facility] Comment on above: Performed By: #### 1 4328370, 7708854, 3734170, 7246554, 1834864, 74924971, 53003579 ####[facility] [address] [place] [address] Anion gap [Moles/Vol] 14 mmol/L Normal 6-16 [facility] Comment on above: Performed By: #### 1 7245220, 3809737, 5534768, 6679971, 5525315, 56748719, 66890294 ####[facility] [address] [place] [address] Calcium [Mass/Vol] 9.0 mg/dL Normal 8.9-11.1 [facility] Comment on above: Performed By: #### 1 2030702, 0530547, 3737831, 1920077, 0487903, 22361456, 37831545 ####[facility] [address] [place] [address] Chloride [Moles/Vol] 99 mmol/L Low 101-111 [facility] Comment on above: Performed By: #### 1 4865229, 1455544, 9855305, 5698264, 7445214, 31820464, 43505429 ####[facility] [address] [place] [address] CO2 [Moles/Vol] 27 mmol/L Normal 21-31 [facility] Comment on above: Performed By: #### 1 1820216, 8329373, 3382507, 7655502, 0717705, 11392862, 58393643 ####[facility] [address] [place] [address] Glucose [Mass/Vol] 107 mg/dL Normal 55-199 [facility] Comment on above: Result Comment: If t his glucose result represents a fasting glucose, interpretation should refer to the following reference range: 55-99 mg/dL Performed By: #### 1 6681867, 7951317, 5236361, 4314084, 6887673, 07690720, 05199208 ####[facility] [address] [place] [address] Potassium [Moles/Vol] 3.3 mmol/L Low 3.5-5.3 [facility] Comment on above: Performed By: #### 1 8605277, 7769985, 5962685, 3105614, 2101772, 11475713, 01563843 ####[facility] [address] [place] [address] Sodium [Moles/Vol] 137 mmol/L Normal 135-145 [facility] Comment on above: Performed By: #### 1 4437897, 2371354, 3849595, 8055435, 4330908, 25056063, 64099421 ####[facility] [address] [place] [address] CBC w/ Auto Diffon Erythrocyte distribution width (RBC) [Ratio] 13.8 % Normal 10.9-14.2 [facility] Comment on above: Performed By: #### 1 1322023, 9443695, 9764697, 7462278, 0929854, 79779521, 45394118 ####[facility] [address] [place] [address] Hematocrit (Bld) [Volume fraction] 46.8 % High 34.0-46.0 [facility] Comment on above: Performed By: #### 1 7219847, 1408257, 5813144, 2793910, 5069920, 68415316, 33454054 ####[facility] [address] [place] [address] Hemoglobin (Bld) [Mass/Vol] 16.2 g/dL High 12.0-16.0 [facility] Comment on above: Performed By: #### 1 7426587, 1479011, 7608918, 9606799, 5406435, 54738672, 60178857 ####[address] MCH (RBC) [Entitic mass] 30.3 pg Normal 27.0-34.0 [facility] Comment on above: Performed By: #### 1 1786083, 9734537, 9962822, 2437571, 8876481, 39963632, 11522911 ####[address] [place] [address] MCHC (RBC) [Mass/Vol] 34.6 g/dL Normal 31.4-36.0 [facility] Comment on above: Performed By: #### 1 3956857, 1300131, 5796310, 3106608, 2039513, 04832817, 88591366 ####[address] [place] [address] MCV (RBC) [Entitic vol] 87.7 fL Normal 80.0-100.0 [facility] Comment on above: Performed By: #### 1 1220600, 4127438, 1346771, 3480044, 3530948, 92266411, 77186287 ####[facility] [place] [address] Platelet mean volume (Bld) [Entitic vol] 7.7 fL Normal 6.4-10.8 [facility] Comment on above: Performed By: #### 1 3611753, 3891319, 1912875, 1903630, 7349636, 65974278, 16299121 ####[address] [place] [address] Platelets (Bld) [#/Vol] 208.0 E9/L Normal 150.0-500.0 [facility] Comment on above: Performed By: #### 1 4611227, 9594464, 0565300, 6405266, 1890705, 98652969, 56084069 ####[address] [place] [address] RBC (Bld) [#/Vol] 5.3 E12/L Normal 4.3-5.9 [facility] Comment on above: Performed By: #### 1 3733553, 5608671, 4164672, 2348238, 0528409, 09350602, 50790800 ####[address] [place] [address] WBC corrected for nucl RBC Auto (Bld) [#/Vol] 11.4 E9/L High 4.0-11.0 [facility] Comment on above: Performed By: #### 1 4410685, 9414404, 6058036, 3855214, 9548798, 82109625, 02814245 ####[address] [address] CHEMISTRYOrdered By: SYSTEM SYSTEM on 03-05-2022 Anion gap [Moles/Vol] 14 mmol/L Normal 6 - 16 mEq/L [facility] Remisol Calcium [Mass/Vol] 9.0 mg/dL Normal 8.9 - 11. 1 mg/dL [facility] Remisol Chloride [Moles/Vol] 99 mmol/L Low 101 - 1 11 mmol/L [facility] Remisol CO2 [Moles/Vol] 27 mmol/L Normal 21 - 31 mmol/L [facility] Creatinine [Mass/Vol] 0.7 mg/dL Normal 0.5 - 1.3 mg/dL [facility] GFR/1.73 sq M.predicted among blacks MDRD (S/P/Bld) [Vol rate/Area] mL/min/1.73 m2 Normal >=59mL/min/1. 73 m2 [facility] S GFR/1.73 sq M.predicted among non-blacks MDRD (S/P/Bld) [Vol rate/Area] mL/min/1.73 m2 Normal >=59mL/min/1. 73 m2 [facility] [place] S Glucose [Mass/Vol] 107 mg/dL Normal 55 - 199 mg/dL [facility] Potassium [Moles/Vol] 3.3 mmol/L Low 3.5 - 5.3 mmol/L [facility] Sodium [Moles/Vol] 137 mmol/L Normal 135 - 145 mmol/L [facility] Troponin I.cardiac [Mass/Vol] 8.30 pg/mL Low 10.10 - 27.10 pg/mL [facility] Urea nitrogen [Mass/Vol] 11 mg/dL Normal 5 - 21 mg/dL [facility] Urea nitrogen/Creatinine [Mass ratio] 16 mg/mg Normal 10 - 20 [facility] COAGULATIONOrdered By: Shadi Case on 03-05-2022 aPTT Coag (PPP) [Time] 36.4 s Normal 25.1 - 36.5 second(s) [facility] [place] Coag Fibrin D-dimer FEU (PPP) [Mass/Vol] 365 ng/mL FEU Normal 215 - 500 ng/mL FEU [facility] Auto Coag INR Coag (PPP) [Relative time] 1.1 {INR} Invalid Interpretation Code [facility] Auto Coag PT Coag (PPP) [Time] 12.7 s Normal 10.2 - 12.9 second(s) [facility] Auto Coag Consent for Treatmenton 02-06 Consent for Treatment [id number] AB#1.00CD:127 Normal [facility] D-Dimeron 03-05-2022 Fibrin D-dimer FEU (PPP) [Mass/Vol] 365 [id number] Normal 215-500 [facility] Comment on above: Result Comment: This assay is intended for use as an aid in the diagnosis of DVT or PE. These conditions cannot be excluded with certainty solely on the basis of a D-dimer concentration being within the reference range This D-Dimer assay may be used in conjunction with a non-high clinical pretest probability assessment to exclude deep-vein thrombosis(DVT). For exclusion of venous thrombosis or pulmonary embolism the analyte D-Dimer should not be used as an aid in patients with: Therapeutic dose anticoagulant therapy for >24 hours Fibrinolytic therapy within previous 7 days Trauma or surgery within previous 4 weeks Disseminated malignacies Aortic aneurysm Sepsis, severe infections, pneumonia, severe skin infections Liver cirrhosis Performed By: #### 1 8215162, 4330778, 1317842, 7778079, 5188180, 23303341, 63831440 ####[facility] [address] [place] [address] Discharge Instructionson Discharge Instructions [id number] 39#1.00CD:127 Normal [facility] ED Clinical Summaryon 2021 ED Clinical Summary [address] [address] ED Clinical Summary Person Information Name: SHADI KEY Annamaria/[facility] Age: 46 Years : 1975 Sex: Female Language: Thai PCP: NONE, XXXX Marital Status: Single Visit Id: Visit Reason: Shortness of breath; Chest pain; CHEST PAIN, SOB, HEADACHE, HIGH BP Speciality: Acuity: 2 Enc Type: Emergency Med Service: Emergency Arrival: 03/05/2022 13:28:49 Discharge: 03/05/2022 14:54:34 LOS: 000 01:26 Checkin: 03/05/2022 13:28:49 Checkout: 03/05/2022 14:54:34 Dispo Type: Home (Routine DC) EVENTS: Event Name Event Status Request Date/Time Start Date/Time Complete Date/Time Arrive Complete 03/05/2022 13:28:49 03/05/2022 13:28:49 03/05/2022 13:28:49 Document Home Meds Request 03/05/2022 13:28:49 Triage Complete 03/05/2022 13:28:49 03/05/2022 13:37:52 03/05/2022 13:37:52 Bed Assign Complete 03/05/2022 13:32:41 03/05/2022 13:32:41 03/05/2022 13:32:41 Dr Exam Complete 03/05/2022 13:32:41 03/05/2022 13:33:15 03/05/2022 13:33:15 RN Exam Complete 03/05/2022 13:32:41 03/05/2022 13:46:58 03/05/2022 13:46:58 EKG Complete 03/05/2022 13:33:04 03/05/2022 13:36:20 Registration Complete 03/05/2022 13:33:15 03/05/2022 13:34:12 03/05/2022 13:34:12 Reg Complete Request 03/05/2022 13:34:12 Reg Bed Request Complete 03/05/2022 13:34:12 03/05/2022 13:34:12 03/05/2022 13:34:12 Pending Labs Request 03/05/2022 13:38:17 Lab Complete 03/05/2022 13:38:17 03/05/2022 14:25:12 Patient Care Request 03/05/2022 13:38:17 RT Request 03/05/2022 13:38:17 X-Ray Complete 03/05/2022 13:38:17 03/05/2022 13:55:15 03/05/2022 14:11:17 Dr Exam Complete 03/05/2022 13:40:31 03/05/2022 13:40:31 03/05/2022 13:40:31 Registration Request 03/05/2022 13:40:31 Pending Labs Complete 03/05/2022 13:49:11 03/05/2022 13:49:11 03/05/2022 14:12:01 Lab Complete 03/05/2022 13:49:11 03/05/2022 13:49:11 03/05/2022 14:12:01 Pending Labs Complete 03/05/2022 13:54:15 03/05/2022 13:54:15 03/05/2022 13:54:23 Lab Complete 03/05/2022 13:54:15 03/05/2022 13:54:15 03/05/2022 13:54:23 Wet Read Complete 03/05/2022 14:11:17 03/05/2022 14:31:38 03/05/2022 14:31:38 Meds Admin Complete 03/05/2022 14:19:20 03/05/2022 14:53:20 Meds Admin Complete 03/05/2022 14:36:09 03/05/2022 14:47:28 Discharge Complete 03/05/2022 14:37:15 03/05/2022 14:54:40 03/05/2022 14:54:40 Transfer Complete 03/05/2022 14:54:40 03/05/2022 14:54:40 03/05/2022 14:54:40 ADDRESS: [address] [place] [phone] PHYS DOC NOTES: MEDICAL INFORMATION: Prescriptions Given: Medications to Continue with No Changes Other Medications albuterol (albuterol HFA 90 mcg/inh MDI) 2 Puffs Inhalation 4 times a day. Refills: 0. buprenorphine-nalox one (Suboxone 8 mg-2 mg sublingual film) Sublingual 2 times a day. docusate (Colace) By Mouth 2 times a day. ibuprofen (ibuprofen 600 mg Tab) 1 Tablets By Mouth every 6 hours. Refills: 0. labetalol (labetalol 300 mg Tab) 1 Tablets By Mouth 3 times a day. PATIENT EDUCATION INFORMATION: Instructions: Nonspecific Chest Pain, Adult; Hypertension, Adult Follow up: With: Address: When: Cameron Moon [address] [place] [address] [phone] Business ([employer] In 3 days 03/08/2022 DIAGNOSIS: Chest pain; Hypertension Normal [facility] ED Note-Physicianon 03-05-20 ED Note-Physician Basic Information Time Seen: Ho Camargo PA-C 03/05/2022 13:33 Chief Complaint Pt reports sudden onset of middle chest pain and SOB with throat tightening up. Pt reports she was driving when this started. Pt had urge to have a BM during it. hx of HTN and every day smoker. History of Present Illness 46-year-old female comes to the ED for evaluation of chest pain. Patient was driving when she developed midsternal chest pain/tightness with associated shortness of breath. Upon arrival to the ED she is visibly anxious and tearful. She has a history of hypertension but admits has not taken her blood pressure for the last few days. She has no history of CAD, no family history of CAD. Additional risk factors include tobacco use and obesity. She had a recent cough, congestion, fever, chills. No associated nausea, vomiting or diaphoresis. No prior treatments. No PE risk factors. Review of Systems A 10 point review of systems is negative except as noted above. Medical and Surgical History: Reviewed and noted Social history: Lives at home Tobacco: Denies Physical Exam Vitals & Measurements T: 36.7 ?C(Oral) HR: 96(Monitored) RR: 20 BP: 148/82 SpO2: 96% HT: 160 cm HT: 160.0 cm WT: 113.5 kg WT: 113.5 kg BMI: 44.34 Nurses notes and vital signs reviewed and patient is not hypoxic. General: Awake and alert, anxious, tearful Skin: Warm, dry, no pallor noted. Head: Atraumatic. Neck: No JVD. Eye: Normal conjunctiva. Ears, Nose, Mouth, and Throat: Moist mucous members. Cardiovascular: Strong distal pulses. Tachycardic. No peripheral edema. Chest wall: Respiratory: Respirations are nonlabored. Back: Normal range of motion, no CVA tenderness. Musculoskeletal: Normal ROM with no gross deformity. Gastrointestinal: Soft and nontender. Urological: Neurological: Awake and alert. No focal deficits. Follows commands. GCS 15. Psychiatric: Cooperative. Medical Decision Making Laboratory studies reviewed and noted. Patient did have tachycardia D-dimer was obtained which is negative. Troponin is negative. EKG shows no ischemic changes. Chest x-ray with no acute infiltrates. Patient was initially hypertensive and labetalol was ordered, however blood pressure improved without intervention. She has a history of hypertension and has not taken her medication for the last few days. This was discussed with her. She does feel much improved on repeat evaluation. Overall she is stable with heart score less than 4 and is safe for discharge home with outpatient follow-up. Patient was encouraged to return to the ED if symptoms worsen or change. Assessment/Plan Chest pain (R07.9: Chest pain, unspecified) Hypertension (I10: Essential (primary) hypertension) Orders: acetaminophen, 975 mg = 3 tab(s), Tab, Oral, Once, Stop date 03/05/22 14:36:00 EDT, STAT, Start date 03/05/22 14:36:00 EDT, 03/05/22 14:36:00 EDT labetalol, 10 mg = 2 mL, Injection, IV Push, Once, Stop date 03/05/22 14:18:00 EDT, STAT, Start date 03/05/22 14:18:00 EDT, 03/05/22 14:18:00 EDT Automated Diff Basic Metabolic Panel CBC w/ Auto Diff D-Dimer ED Cardiac Monitoring eGFR Oxygen Saturation Oxygen Therapy PT & PTT Saline Lock Insert Troponin 0 Hr. XR Chest Single View Medications Administered Given acetaminophen 325 mg Tab, 975 mg, Oral Disposition Plan Patient Discharge Condition Disposition: Discharged home Condition: Improved and stable Counseled: Patient and/or family were counseled to workup, results, treatment plan and follow-up recommendations Discharge Prescription List Prescriptions No active prescription medications Follow-up With When Contact Information Cameron Moon In 3 days 03/08/[address] [place] [phone] Business (1) Additional Instructions: Patient Education Nonspecific Chest Pain, Adult Hypertension, Adult Attestation Patient seen and evaluated by the physician compliance assistant. Attending physician was present in the emergency department and supervised care. This visit was performed by both the physician and an APC. I performed all aspects of the MDM as documented. This report was transcribed using voice recognition software. Every effort was made to ensure accuracy, however, inadvertently computerized respiratory equipment assistant mistakes may be present. Appropriate healthcare PPE was used in evaluating this patient. The patient was placed in a mask. The healthcare provider was wearing mask, gloves, and utilizing proper hand hygiene. All equipment was properly cleansed. Problem List/Past Medical History Ongoing ENDOMETRIOSIS Smoker UTI - Urinary tract infection Historical Hypertension in , preeclampsia Procedure/Surgical History Breast surgery, Endometriosis. Medications Inpatient No active inpatient medications Home albuterol HFA 90 mcg/inh MDI, 2 puff(s), Inhalation, QID, Not taking Colace, Oral, BID, Not taking ibuprofen 600 mg Tab, 600 mg= 1 tab(s), Oral, q6h (more content not included)... Normal [facility] Comment on above: Result Comment: Elec tronically Signed By: Ho Camargo PA-C\.br\Date and Time Signed: 03/05/22 15:59 EDT\.br\Electronically Co-Signed By: Braxton Chapa DO\.br\Date and Time Co-Signed: 03/05/22 16:36 EDT ED Patient Education Noteon 03-05-2022 ED Patient Education Note Cardiovascular Hypertension, Adult High blood pressure (hypertension) is when the force of blood pumping through the arteries is too strong. The arteries are the blood vessels that carry blood from the heart throughout the body. Hypertension forces the heart to work harder to pump blood and may cause arteries to become narrow or stiff. Untreated or uncontrolled hypertension can cause a heart attack, heart failure, a stroke, kidney disease, and other problems. A blood pressure reading consists of a higher number over a lower number. Ideally, your blood pressure should be below 120/80. The first ( top ) number is called the systolic pressure. It is a measure of the pressure in your arteries as your heart beats. The second ( bottom ) number is called the diastolic pressure. It is a measure of the pressure in your arteries as the heart relaxes. What are the causes? The exact cause of this condition is not known. There are some conditions that result in or are related to high blood pressure. What increases the risk? Some risk factors for high blood pressure are under your control. The following factors may make you more likely to develop this condition: ? Smoking. ? Having type 2 diabetes mellitus, high cholesterol, or both. ? Not getting enough exercise or physical activity. ? Being overweight. ? Having too much fat, sugar, calories, or salt (sodium) in your diet. ? Drinking too much alcohol. Some risk factors for high blood pressure may be difficult or impossible to change. Some of these factors include: ? Having chronic kidney disease. ? Having a family history of high blood pressure. ? Age. Risk increases with age. ? Race. You may be at higher risk if you are . ? Gender. Men are at higher risk than women before age 45. After age 65, women are at higher risk than men. ? Having obstructive sleep apnea. ? Stress. What are the signs or symptoms? High blood pressure may not cause symptoms. Very high blood pressure (hypertensive crisis) may cause: ? Headache. ? Anxiety. ? Shortness of breath. ? Nosebleed. ? Nausea and vomiting. ? Vision changes. ? Severe chest pain. ? Seizures. How is this diagnosed? This condition is diagnosed by measuring your blood pressure while you are seated, with your arm resting on a flat surface, your legs uncrossed, and your feet flat on the floor. The cuff of the blood pressure monitor will be placed directly against the skin of your upper arm at the level of your heart. It should be measured at least twice using the same arm. Certain conditions can cause a difference in blood pressure between your right and left arms. Certain factors can cause blood pressure readings to be lower or higher than normal for a short period of time: ? When your blood pressure is higher when you are in a health care provider's office than when you are at home, this is called white coat hypertension. Most people with this condition do not need medicines. ? When your blood pressure is higher at home than when you are in a health care provider's office, this is called masked hypertension. Most people with this condition may need medicines to control blood pressure. If you have a high blood pressure reading during one visit or you have normal blood pressure with other risk factors, you may be asked to: ? Return on a different day to have your blood pressure checked again. ? Monitor your blood pressure at home for 1 week or longer. If you are diagnosed with hypertension, you may have other blood or imaging tests to help your health care provider understand your overall risk for other conditions. How is this treated? This condition is treated by making healthy lifestyle changes, such as eating healthy foods, exercising more, and reducing your alcohol intake. Your health care provider may prescribe medicine if lifestyle changes are not enough to get your blood pressure under control, and if: ? Your systolic blood pressure is above 130. ? Your diastolic blood pressure is above 80. Your personal target blood pressure may vary depending on your medical conditions, your age, and other factors. Follow these instructions at home: Eating and drinking ? Eat a diet that is high in fiber and potassium, and low in sodium, added sugar, and fat. An example eating plan is called the DASH (Dietary Approaches to Stop Hypertension) diet. To eat this way: ? Eat plenty of fresh fruits and vegetables. Try to fill one half of your plate at each meal with fruits and vegetables. ? Eat whole grains, such as whole-wheat pasta, brown rice, or whole-grain bread. Fill about one fourth of your plate with whole grains. ? Eat or drink low-fat dairy products, such as skim milk or low-fat yogurt. ? Avoid fatty cuts of meat, processed or cured meats, and poultry with skin. Fill about one fourth of your plate with lean proteins, such as fish, chicken without skin, beans, eggs, or tofu. ? Avoi (more content not included)... Normal [facility] ED Patient Summaryon 022 ED Patient Summary [address] [address] Patient Discharge Instructions Person Information Name: SHADI KEY Age: 46 Years Arrival Date: 03/05/2022 13:28:49 Discharge Diagnosis: Chest pain; Hypertension Primary Care Physician: NONE, XXXX Provider Information Primary Provider: Braxton Chapa DO Advanced Sample Patternmaker:Ho Camargo PA-C The exam and treatment you received in the Emergency Department were for an urgent problem and are not intended as complete care. It is important that you follow up with a doctor, nurse practitioner, or physician?s compliance assistant for ongoing care. If your symptoms become worse or you do not improve as expected and you are unable to reach your usual health care provider, you should return to the Emergency Department. We are available 24 hours a day. SHADI KEY has been given the following list of patient education materials, prescriptions and follow-up instructions: Follow-up Instructions: With: Address: When: Cameron Moon [address] [place] [id number] Business (1) In 3 days 03/08/2022 In the event that this physician does not participate in your insurance network, please consult with your insurance company to find a nearby participating provider. Patient Education Materials: Nonspecific Chest Pain, Adult; Hypertension, Adult A MESSAGE TO ALL PATIENTS REGARDING OPIOIDS PRESCRIPTION OPIOIDS: WHAT YOU NEED TO KNOW Prescription opioids can be used to help relieve jyxdbydn-dv-erfntj pain and are often prescribed following a surgery or injury, or for certain health conditions. These medications can be an important part of the treatment but also come with serious risks. It is important to work with your healthcare provider to make sure you are getting the safest, most effective care. WHAT ARE THE RISKS AND SIDE EFFECTS OF OPIOID USE? Prescription opioids carry serious risks of addiction and overdose, especially with prolonged use. An opioid overdose, often marked by slowed breathing, can cause sudden . The use of prescription opioids can have a number of side effects as well, even when taken as directed: ? Tolerance?meaning you might need to take more of the medication for the same pain relief ? Physical dependence?meaning you have symptoms of withdrawal when a medication is stopped ? Increased sensitivity to pain ? Constipation ? Nausea, vomiting, and dry mouth ? Sleepiness and dizziness ? Confusion ? Depression ? Low levels of testosterone that can result in lower sex drive, energy, and strength ? Itching and sweating RISKS ARE GREATER WITH: ? History of drug misuse, substance use disorder, or overdose ? Mental health conditions (such as depression or anxiety) ? Sleep apnea ? Older age (65 years and older) ? Avoid alcohol while taking prescription opioids. Also, unless specifically advised by your health care provider, medications to avoid include: ? Benzodiazepines (such as Xanax or Valium) ? Muscle relaxants (such as Soma or Flexeril) ? Hypnotics (such as Ambien or Lunesta) ? Other prescription opioids KNOW YOUR OPTIONS Talk to your health care provider about ways to manage your pain that don?t involve prescription opioids. Some of these options may actually work better and have fewer risks and side effects. Options may include: ? Pain relievers such as acetaminophen, ibuprofen, and naproxen ? Some medication that are also used for depression or seizures ? Physical therapy and exercise ? Cognitive behavioral therapy, a psychological, goal-directed approach, in which patients learn how to modify physical, behavioral, and emotional triggers of pain and stress. IF YOU ARE PRESCRIBED OPIOIDS FOR PAIN: ? Never take opioids in greater amounts or more often than prescribed. ? Follow up with your primary health care provider. o Work together to create a plan on how to manage your pain. o Talk about ways to help manage your pain that don?t involve prescription opioids. o Talk about any and all concerns and side effects. ? Help prevent misuse and abuse o Never sell or share prescription opioids. o Never use another person?s prescription opioids. ? Store prescription opioids in a secure place and out of reach of others (this may include visitors, children, friends, and family). ? Safely dispose of unused prescription opioids: Find your community drug take-back program or your pharmacy mail-back program, or flush them down the toilet, following guidance from the Food and Drug Administration (www.fda.gov/Drugs/ ResourcesForYou). ? Visit www.cdc.gov/drugove rdose to learn about the risks of opioids abuse and overdose. ? If you believe you may be struggling with addiction, tell your health critical care educator and ask for guidance or call [facility]?S National Helpline at 3-944-316-KCZI (more content not included)... Normal [facility] HEMATOLOGYOrdered By: SYSTEM SYSTEM on 03-05-2022 Basophils/100 WBC (Bld) 0.7 % Normal 0.0 - 2.0 % [facility] Basophils/Leukocytes Auto (Bld) [Pure # fraction] 0.1 E9/L Normal 0.0 - 0.2 E9/L [facility] Eosinophils/100 WBC (Bld) 1.9 % Normal 0.0 - 8.0 % [facility] Eosinophils/Leukocytes Auto (Bld) [Pure # fraction] 0.2 E9/L Normal 0.0 - 0.5 E9/L [facility] Lymphocytes/100 WBC (Bld) 20.9 % Normal 14.0 - 50.0 % [facility] Lymphocytes/Leukocytes Auto (Bld) [Pure # fraction] 2.4 E9/L Normal 1.0 - 4.0 E9/L [facility] Monocytes/100 WBC (Bld) 6.5 % Normal 4.0 - 14.0 % [facility] Monocytes/Leukocytes Auto (Bld) [Pure # fraction] 0.7 E9/L Normal 0.2 - 1.0 E9/L [facility] Neutrophils/100 WBC (Bld) 70.0 % Normal 36.0 - 75.0 % [facility] Neutrophils/Leukocytes Auto (Bld) [Pure # fraction] 8.0 E9/L High 2.0 - 7.5 E9/L [facility] HEMATOLOGYOrdered By: Vicente Crawford on 03-05-2022 Erythrocyte distribution width (RBC) [Ratio] 13.8 % Normal 10.9 - 14.2 % [facility] Hematocrit (Bld) [Volume fraction] 46.8 % High 34.0 - 46.0 % [facility] Hemoglobin (Bld) [Mass/Vol] 16.2 g/dL High 12.0 - 16.0 gm/dL [facility] MCH (RBC) [Entitic mass] 30.3 pg Normal 27.0 - 34.0 pg [facility] MCHC (RBC) [Mass/Vol] 34.6 g/dL Normal 31.4 - 36.0 gm/dL [facility] MCV (RBC) [Entitic vol] 87.7 fL Normal 80.0 - 100.0 fL [facility] Platelet mean volume (Bld) [Entitic vol] 7.7 fL Normal 6.4 - 10.8 fL [facility] Platelets (Bld) [#/Vol] 208.0 E9/L Normal 150.0 - 500.0 E9/L [facility] RBC (Bld) [#/Vol] 5.3 E12/L Normal 4.3 - 5.9 E12/L [facility] WBC corrected for nucl RBC Auto (Bld) [#/Vol] 11.4 E9/L High 4.0 - 11.0 E9/L [facility] PT & PTTon 03-05-2022 aPTT Coag (PPP) [Time] 36.4 second(s) Normal 25.1-36.5 [facility] Comment on above: Result Comment: Para meter 15 days - 4 weeks 1 - 5 months 6 - 11 months 1 - 5 years 6 - 10 years 11 - 17 years PTT Mean: 35.4 (27.6-45.6) Mean: 33.5 (24.8-40.7) Mean: 32.4 (25.1-40.7) Mean: 31.6 (24.0-39.2) Mean: 31.6 (26.9-38.7) Mean: 31.0 (24.6-38.4) Pediatric Reference ranges were obtained from a study by Arcenio Irvin et al. prepared from 1437 samples obtained at 7 different centers using the same coagulation reagent and instrumentation [place] [facility] Currently there are no coagulation studies available worldwide for children to 14 days, and no normal ranges. Heparin therapeutic range (represented by Anti-Factor Xa activity of 0.2 - 0.4 U/mL) corresponds to PTT of 56.6 - 109.0 sec. Performed By: #### 1 [id number], [id number], [id number], 6592379, 0453730, [id number], [id number] ####[facility] [address] [place] [address] INR Coag (PPP) [Relative time] 1.1 {INR} Invalid Interpretation Code [facility] Comment on above: Result Comment: INR results are specifically intended to assess patients stabilized on long-term Anticoagulation therapy suggested INR?s ?Less Intensive Anticoagulation? 2.0 ? 3.0 Conventional Range 3.0 ? 4.5 Performed By: #### 1 [id number], [id number], 0289685, 6404722, 2242512, [id number], [id number] ####[facility] [address] [place] [address] PT Coag (PPP) [Time] 12.7 second(s) Normal 10.2-12.9 [facility] Comment on above: Performed By: #### 1 [id number], 9158059, 3371960, 0031470, 2002255, [id number], [id number] ####[facility] [address] [place] [address] Troponin 0 Hr.on 03-05-2022 Troponin I.cardiac [Mass/Vol] 8.30 pg/mL Low 10.10-27.10 [facility] Comment on above: Result Comment: The 95% CI (Confidence Interval) PPV (Positive Predictive Value) for myocardial infarction in females is 38 pg/mL, in males 51 pg/mL. The results should be used in conjunction with clinical conditions of myocardial infarction. (Access High Sensitivity Troponin I Instructions For Use, [place], March 2018) Performed By: #### 1 [id number], 1026839, 2739588, 1530388, 1690677, [id number], [id number] ####[facility] [address] [place] [address] XR Chest Single Viewon 03-05 XR Chest Single View Exam Date/Time: 03/05/2022 14:11 EDT Reason for Exam: Chest pain Report IMPRESSION: NO EVIDENCE OF ACTIVE CHEST DISEASE. CLINICAL HISTORY: Chest pain. COMPARISON: 11/22/2018. COMMENT: AP portable. The heart is normal in size. The mediastinum is unremarkable. The lungs appear clear. No infiltration nor pleural effusion is evident. No significant change is noted when compared to the prior exam. FINAL REPORT Dictated: 03/05/2022 3:50 pm Srinivasan Leary M.D. Signed (Electronic Signature): 03/05/2022 3:50 pm Signed by: Srinivasan Leary M.D. Transcribed by: JORJE Technologist: DON Velez [facility] eGFRon 03-05-2022 GFR/1.73 sq M.predicted among blacks MDRD (S/P/Bld) [Vol rate/Area] mL/min/{1.73_m2} Normal >=59 [facility] Comment on above: Order Comment: Order added by Discern Expert. Result Comment: eGFR is race adjusted. AA=. Performed By: #### 1 [id number], [id number], 4051888, 8707038, 1289678, [id number], [id number] ####[facility] [address] [place] [address] GFR/1.73 sq M.predicted among non-blacks MDRD (S/P/Bld) [Vol rate/Area] mL/min/{1.73_m2} Normal >=59 [facility] Comment on above: Order Comment: Order added by Discern Expert. Result Comment: Student Dean jenifer kidney disease could be indicated at eGFR's of less than 60 mL/min/1.73m2. Kidney failure is indicated at less than 15 mL/min/1.73m2. Performed By: #### 1 [id number], 5622937, 4673692, 5621542, 7554432, [id number], [id number] ####[facility] [address] [place] [address] [place] [id number] INSULINon 10-07-2021 Insulin 14.7 uIU/mL Normal 2.6-24.9 [facility] Comment on above: Performed By: #### I NSULIN #### [facility] [address] [place] [address] Dr. Jojo Burr BNPon 10-06-2021 Natriuretic peptide B (Bld) [Mass/Vol] 94.0 pg/mL Normal <=450.0 [facility] Comment on above: Performed By: #### A 1C #### [facility] [address] [place] [address] Dr. Jojo Burr CBC AUTO DIFFon 10-06-2021 BASO # 0.0 103/ul Normal 0.0-0.1 [facility] Comment on above: Performed By: #### C BC #### [facility] [address] [place] [address] Dr. Jojo Burr Basophils/100 WBC (Bld) 0.3 % Normal 0.2-2.0 [facility] Comment on above: Performed By: #### C BC #### [facility] [address] [place] [address] Dr. Jojo Burr EO # 0.3 103/ul Normal 0.0-0.7 [facility] Comment on above: Performed By: #### C BC #### [facility] [address] [place] [address] Dr. Jojo Burr Eosinophils/100 WBC (Bld) 2.5 % Normal 0.9-7.0 [facility] Comment on above: Performed By: #### C BC #### [facility] [address] [place] [address] Dr. Jojo Burr Erythrocyte distribution width (RBC) [Ratio] 13.0 % Normal 11.0-15.0 [facility] Comment on above: Performed By: #### C BC #### [facility] [address] [place] [address] Dr. Jojo Burr Hematocrit (Bld) [Volume fraction] 44.8 % Normal 36.0-48.0 [facility] Comment on above: Performed By: #### C BC #### [facility] [address] [place] [address] Dr. Jojo Burr Hemoglobin (Bld) [Mass/Vol] 14.9 g/dL Normal 12.0-16.0 [facility] Comment on above: Performed By: #### C BC #### [facility] [address] [place] [address] Dr. Jojo Burr IG # 0.04 10e3/ul Critically high 0.00-0.03 [facility] Comment on above: Performed By: #### C BC #### [facility] [address] [place] [address] Dr. Jojo Burr IG % 0.4 % Normal 0.0-0.5 [facility] Comment on above: Performed By: #### C BC #### [facility] [address] [place] [address] Dr. Jojo Burr LYMPH # 1.9 103/ul Normal 1.2-3.8 [facility] Comment on above: Performed By: #### C BC #### [facility] [address] [place] [address] Dr. Jojo Burr Lymphocytes/100 WBC (Bld) 19.0 % Critically low 20.5-60.0 [facility] Comment on above: Performed By: #### C BC #### [facility] [address] [place] [address] Dr. Jojo Burr MANUAL DIFF REQ NO Normal [facility] Comment on above: Performed By: #### C BC #### [facility] [address] [place] [address] Dr. Jojo Burr MCH (RBC) [Entitic mass] 29.7 pg Normal 26.7-34.0 [facility] Comment on above: Performed By: #### C BC #### [facility] [address] [place] [address] Dr. Jojo Burr MCHC (RBC) [Mass/Vol] 33.3 g/dL Normal 29.9-35.2 [facility] Comment on above: Performed By: #### C BC #### [facility] [address] [place] [address] [address] Jojo Burr MCV (RBC) [Entitic vol] 89.2 fL Normal 81.0-99.0 [facility] Comment on above: Performed By: #### C BC #### [facility] [address] [place] [address] [address] Jojo Burr MONO # 0.6 103/ul Normal 0.3-0.8 [facility] Comment on above: Performed By: #### C BC #### [facility] [address] [place] [address] Dr. Jojo Burr Monocytes/100 WBC (Bld) 6.1 % Normal 1.7-12.0 [facility] Comment on above: Performed By: #### C BC #### [facility] [address] [place] [address] [address] Jooj Burr NEUT # 7.2 103/ul Critically high 1.4-6.5 [facility] Comment on above: Performed By: #### C BC #### [facility] [address] [place] [address] Dr. Jojo Burr Neutrophils/100 WBC (Bld) 71.7 % Normal 43.0-75.0 [facility] Comment on above: Performed By: #### C BC #### [facility] [address] [place] [address] [address] Jojo Burr Platelet mean volume (Bld) [Entitic vol] 9.0 fL Critically low 9.5-13.5 [facility] Comment on above: Performed By: #### C BC #### [facility] [address] [place] [address] Dr. Jojo Burr PLT 217 103/ul Normal 150-450 [facility] Comment on above: Performed By: #### C BC #### [facility] [address] [place] [address] Dr. Jojo Burr RBC 5.02 106/ul Normal 4.20-5.40 [facility] Comment on above: Performed By: #### C BC #### [facility] [address] [place] [address] [address] Jojo Burr WBC 10.0 103/ul Normal 4.0-11.0 [facility] Comment on above: Performed By: #### C BC #### [facility] [address] [place] [address] [address] Jojo Burr FREE THYROXINE INDEX T7on FTI 3.66 Normal [facility] Comment on above: Performed By: #### A 1C #### [facility] [address] [place] [address] [address] Jojo Burr T3U 33.0 % Normal 23.5-40.5 [facility] Comment on above: Performed By: #### A 1C #### [facility] [address] [place] [address] Dr. Jojo Burr T4 [Mass/Vol] 11.10 ug/dL Critically high 5.53-11.00 [facility] Comment on above: Performed By: #### A 1C #### [facility] [address] [place] [address] [address] Jojo Burr GLYCOHEMOGLOBIN A1Con 2021 ADA RECOMMENDATION ADA THERAPEUTIC TARGET 6.0 - 7.0 ACTION SUGGESTED > 7.0 Normal [facility] Comment on above: Performed By: #### A 1C #### [facility] [address] [place] [address] [address] Jojo Burr Glucose [Mass/Vol] 108 mg/dL Normal [facility] Comment on above: Performed By: #### A 1C #### [facility] [address] [place] [address] [address] Jojo Burr HbA1c (Bld) [Mass fraction] 5.4 % Normal <=6.0 [facility] Comment on above: Performed By: #### A 1C #### [facility] [address] [place] [address] [address] Jojo Burr IRONon 10-06-2021 Iron [Mass/Vol] ug/dL Critically low 37.0-170.0 [facility] Comment on above: Performed By: #### I RADHA #### [facility] [address] [place] [address] [address] Jojo Burr LIPID PROFILEon 10-06-2021 CHOL-HDL RATIO NORM SEE BELOW Normal [facility] Comment on above: Result Comment: 3.3 - 4.4 LOW RISK 4.4 - 7.1 AVERAGE RISK 7.1 - 11.0 MODERATE RISK >11.0 HIGH RISK Performed By: #### A 1C #### [facility] [address] [place], [place] [address] Dr. Jojo Burr Cholesterol [Mass/Vol] 196 mg/dL Normal <=200 Th [facility] Comment on above: Performed By: #### A 1C #### [facility] [address] [place] [address] [address] Jojo Burr Cholesterol in HDL [Mass/Vol] 46 mg/dL Normal [facility] Comment on above: Performed By: #### A 1C #### [facility] [address] [place] [address] [address] Jojo Burr Cholesterol in LDL [Mass/Vol] 131.6 mg/dL Normal [facility] Comment on above: Performed By: #### A 1C #### [facility] [address] [place] [address] [address] Jojo Burr Cholesterol.total/Chol esterol in HDL [Mass ratio] 4.3 {ratio} Normal [facility] Comment on above: Performed By: #### A 1C #### [facility] [id number] Jojo Burr HDL NORMAL > or = 60 mg/dl - LOW CARDIOVASCULAR RISK <40 mg/dl - HIGH CARDIOVASCULAR RISK Normal [facility] Comment on above: Performed By: #### A 1C #### [facility] [address] [id number] Jojo Burr LDL CALC NORMAL SEE BELOW Normal [facility] Comment on above: Result Comment: <100 mg/dl OPTIMAL 100 - 129 mg/dl NEAR OR ABOVE OPTIMAL 130 - 159 mg/dl BORDERLINE HIGH 160 - 189 mg/dl HIGH >190 mg/dl VERY HIGH Performed By: #### A 1C #### [facility] [address] [place] [address] [address] Jojo Burr Triglyceride [Mass/Vol] 92 mg/dL Normal <=150 [facility] Comment on above: Performed By: #### A 1C #### [facility] [address] [place] [address] Dr. Jojo Burr VLDL CALC 18.4 mg/dL Normal [facility] Comment on above: Performed By: #### A 1C #### [facility] [address] [place] [address] [address] Jojo Burr PROF 14(COMP METB)on 022 Albumin [Mass/Vol] 3.7 g/dL Normal 3.5-5.0 [facility] Comment on above: Performed By: #### A 1C #### [facility] [address] [place] [address] Dr. Jojo Burr Albumin/Globulin [Mass ratio] 0.9 {ratio} Normal [facility] Comment on above: Performed By: #### A 1C #### [facility] [address] [place] [address] Dr. Jojo Burr ALP [Catalytic activity/Vol] 136 U/L Critically high 38-126 [facility] Comment on above: Performed By: #### A 1C #### [facility] [address] [place] [address] Dr. Jojo Burr ALT [Catalytic activity/Vol] 89 U/L Critically high 9-52 [facility] Comment on above: Performed By: #### A 1C #### [facility] [address] [place] [address] Dr. Jojo Burr Anion gap [Moles/Vol] 10.0 mmol/L Normal [facility] Comment on above: Performed By: #### A 1C #### [facility] [address] [place] [address] Dr. Jojo Burr AST [Catalytic activity/Vol] 65 U/L Critically high 14-36 [facility] Comment on above: Performed By: #### A 1C #### [facility] [address] [place] [address] [address] Jojo Burr Bilirubin [Mass/Vol] 0.8 mg/dL Normal 0.2-1.3 [facility] Comment on above: Performed By: #### A 1C #### [facility] [address] [place] [address] [address] Jojo Burr Calcium [Mass/Vol] 9.1 mg/dL Normal 8.4-10.2 [facility] Comment on above: Performed By: #### A 1C #### [facility] [address] [place] [address] [address] Jojo Burr Chloride [Moles/Vol] 103 mmol/L Normal 98-107 [facility] Comment on above: Performed By: #### A 1C #### [facility] [address] [place] [address] Dr. Jojo Burr CO2 [Moles/Vol] 26.5 mmol/L Normal 22.0-30.0 [facility] Comment on above: Performed By: #### A 1C #### [facility] [address] [place] [address] Dr. Jojo Burr Creatinine [Mass/Vol] 0.69 mg/dL Normal 0.52-1.04 [facility] Comment on above: Performed By: #### A 1C #### [facility] [address] [place] [address] Dr. Jojo Burr EGFR-AF FILIPINO >60 Normal >=60 [facility] Comment on above: Performed By: #### A 1C #### [facility] [address] [place] [address] Dr. Jojo Burr EGFR-NON AF FILIPINO >60 Normal >=60 [facility] Comment on above: Performed By: #### A 1C #### [facility] [address] [place] [address] Dr. Jojo Burr Globulin (S) [Mass/Vol] 4.1 g/dL Normal [facility] Comment on above: Performed By: #### A 1C #### [facility] [address] [place] [address] Dr. Jojo Burr Glucose [Mass/Vol] 103 mg/dL Normal 74-106 [facility] Comment on above: Performed By: #### A 1C #### [facility] [address] [place] [address] [address] Jojo Burr Potassium [Moles/Vol] 4.5 mmol/L Normal 3.4-5.0 [facility] Comment on above: Performed By: #### A 1C #### [facility] [address] [place] [address] [address] Jojo Burr Protein [Mass/Vol] 7.8 g/dL Normal 6.1-8.2 [facility] Comment on above: Performed By: #### A 1C #### [facility] [address] [place] [address] Dr. Jojo Burr Sodium [Moles/Vol] 135 mmol/L Critically low 137-145 [facility] Comment on above: Performed By: #### A 1C #### [facility] [address] [place] [address] [address] Jojo Burr Urea nitrogen [Mass/Vol] 12.0 mg/dL Normal 7.0-17.0 [facility] Comment on above: Performed By: #### A 1C #### [facility] [address] [place] [address] Dr. Jojo Burr Urea nitrogen/Creatinine [Mass ratio] 17.4 mg/mg Normal [facility] Comment on above: Performed By: #### A 1C #### [facility] [address] [place] [address] [address] Jojo Burr TSHon 10-06-2021 TSH 1.068 uIU/mL Normal 0.470-4.680 [facility] Comment on above: Performed By: #### A 1C #### [facility] [address] [place] [address] Dr. Jojo Burr TSH RANGE SEE BELOW Normal [facility] Comment on above: Result Comment: <0.3 4 UIU/ml HYPERTHYROID 0.34-5.60 UIU/ml EUTHYROID >5.60 UIU/ml HYPOTHYROID Performed By: #### A 1C #### [facility] [address] [place] [address] Dr. Jojo Burr Coding Summary.on 08-17-2021 Coding Summary. [id number] [id number] [id number] 5xAnrLZhdjY5yoCJsY7 j8LoBpHB16tW21OUvjD UMaWgP1OmVjsuejvIGk C9hsQqCxaRHbYrl+PHR hYmxlIHdpZHRoPScxMD HkPgVybGmdWA2pEm9gE GVyLWNvbGxhcHNlOiBj g0ciFVRbJRyeVX2foHo eB5HoiZA7DKQsn5r4Qb 48dHI+GRHmEWM9bRggL Gvxz120YoWnt5vdSZG3 xZWqJVwfWOP3J59fk3A 2ZVRzZNGdBXU7eJV9fH 0vwRgtvuoyK4FufHCqO zH3VED2zVPtvS4zkYgj hsvifR1eIiw+M91DOW6 GAJNPYU3PExn6O9NnKo wvdHI+CR48OZCzVA82m LDajOSku1wyuGs1BpSc ZWSzYXA2wDtbDPnkh1Q vRJMbP33rsQKmt9G3HE OfpXdpkEAeDnXsnAR1g L3sFWuiszkkg2cjxaxc Sahat2gmqs30iP40A99 eJSfbUVGjJLG5ZIEbCM MdkUvdat3mcV5aEu9+I Rrnv7ykg0pmqAa3CpZm SQPuwgPmoKmmGCV1l6G jIa61Y8AagIkjf6BlCy x8xj18eCRur2H7eIA8P JyaXGQwjF6aNYluRnV1 QYSnDfPziY27dXVrPJf fJy8ycKgzmEsqQQ8fWR FvykoyRNIotC2oKFTkc MRbnNmaRQ2nWUImtsms l362RfNgMAE0BJSioTI oS6XzcG5bSnDjRCXfBH XiL3UpuIFlFBxnP294B HbsHgF3BUWjdlFkZ2Fx KSJgcOifKxM5f3T8Xp3 Qj8IjalsfTAE5TMudKR HrAwAaSfXyDqI3S1GeG br9CUYhtClvZD0sW2Tg LNAxdplshvbbjHG0LRH bIHOowL89nBRqQMrgLi 2tz5M9j176KZKzGLVjq Y62Jo2vwUtsLXVovIMG jZ6hlscgn0ihbvwgLrX vNYKpSBj7MFq6IAMdzJ slHoXwYFX0RqO6GKV4w URmmX6yvAevkvqncJ6j Oyc+B57bcU3cZMV9YOI 3xeotXQUbqjViPW03AW 69D9AaMohisPUwxXD+P WAetqZubCltXP5zJsRf d7knh1GhAPqhF1HcEVF dVJjnUvj0PKJrTRJ0sZ Q5nN3iAFIcWRccn6J9a QW9N0HdglSahu9ub6je EKEmLZgoS51muDWyy3F 9EAUbmWA4WEMwcLjgZv HucM54Ddm+PGNvbGdyb 1TgJgzni5inm3etbMs1 IjMwJSIgdmFsaWduPSJ 6l5QhSr08Z89xFZjbOI RoPSIxNSUiIHZhbGlnb w9xpN2lIi5+PGNvbCB3 tWP1mP1gHGXyNcD6CUj zG028YvCyzPElUowpa0 xsy5hmkUx7ZfYdXWCiz gNwwHorMLI3r1YjAo85 B39vVHfhEWLnZMDaBRX wBALahMjgjd4qsP3zRp 8+VS6bh5nvze01rL10k HI+MXAkWQB6uGybMDna TTQazM3zEDvkTaT0VDF hAzTahW37wGHdZGlgGg 1aiLtinFpmHZ1aCEPtf xjsp625OqXlj3ptGAVp hNPyNZlqZRF3Z30qg6L 9XLMvEMLwGBI3sKH9yU 1hbGlnbjogbGVmdDsgd pFvwKxfNWwnPDouP081 IHRvcDsnPlBhdGllbnQ wIdJhECr5E9FxPtd2BG VpmYcxCL2mgGXvOPltM p2cmGkysSfcVO2kWWOg dahij893SlRit0fdSKD vgSFuOCqsIRD6F11wk0 T8MIPbASCqNXE4yMG2n S5xwFaggaztlSCuaZbi znBguIwcCOqtONcdQ55 6IHRvcDsnPkJpcnRoIE DnuJK7NA84BX51tLBjk 2Z6oMR0Q2BnNLKigdfu gminpXN2SKZvIQGnaM3 8Cy5wuOsmIq6fNURtOM E7NKJdgLUbY7UovV1yY dKzUZLnZDLcD6FahRKq XGdqO272TXufMqT5XXG gewVqW8YeJGWdsLzwWr N4e4M7Js6UT1R7AC21H M09tZZwv6M9zUZ0N4At MZIbvqhmdworuCJ8HBP jVDNktG46Yy6dgFegLa 5vSGUtDCY6XHYhnZRlW 1GyjD8bSnQcDWBfBMPl H9JmoVLzMTjuX739PKk pAaG9LKHptgRgI5ArSB SqiKhjKiH9f7S5Nz7FH Ox6FA12YP87gMTag5U8 iDY0T9WqSEGpenbubbf zxFJ0DXIxMPMyfR36Ip 8ezXegKv1kVJCzGJV5R VRjdYGtY7NlpM9hHpRs MXBsUUGrF0UxkZWeASf kJ592NCwnCjM3NSUdkc OiX5AyVOJheHqdCsV1r 5M4Se6RMYCoXY86XSQ9 yCZ8VM95UK09M1MnFzf vdGFibGU+PHRhYmxlIH dpZHRoPScxMDAlJyBzd DkfRL0rPr2wMBNzZTAi qLubnGEbHhIsi2hcTQN yEInzHA5keEehM2BbaI I8VPRhd0l6Ey26O80fW 3JvdXA+RFWfmXY9mVN3 zJ1pArKbPjY5MLyuV28 5YvLpvFFeHhfep9pru3 asrSg0ReD3DPAygmOcb SjgRFV0x0PuTs90V47x IHdpZHRoPSIxNSUiIHZ ouCykid5bzP3zFf6+PG XtkTI3lPO5yR8xJhUrG fX1TRoiB154DdCncEXu Dnoak5kul4lqqPs3RtP xFLGpsbQxeHseHET0o6 WaOl29P4CpeNukv0ZfH zo4bs14wVBdn3U9sIM1 H2JmKBEvieilnAYtbBk pPB0tDMFjgcqyKKJspU 3rXNZxU6r9UyHpDxL9B WlvD0GkteS3XGTijOSr JQzpMPJ5V28km5J7RJJ vVPXdQIG4aVM0uD0lnT lnbjogbGVmdDsgdmVyd PdwXHfeXZpjD751XTOa pPpmRJMfcD4nHONznTT rmKpfWQ3iFKTonfimUc AJKYPKLH1pLLLWA82hR DwvdGQ+XIPiNME1fUus BSnzZRCnsA9jDOHoJ3m 7PeQrKxK3WDbhW1GiRP UnmazzZe51wN7lKdVxM bG5ZZtmV6JhzcD2TMTv dVToPMoeKCP2C77tk5U 1MQXsUGImARU9zZK8yJ 1hbGlnbjogbGVmdDsgd jGjmJvqFBluNXvfR995 WKDrgLjbNlIoBdD9NvR 8UvX5E3NeBqp2ORKjmJ tlMI5ueGEwWKtpMs3dc RhjjLxpUX4yZPSvhjkg RECytB3uOJWfdDIqtSa yDI1gBYWeozjtx912Yp HkNEK1INEnpOZeY0Yrb D9dNkAjJLJbPEGpJ1Em lKLpJYhbL537OObqUnP 3LKLikwNpJ3LuIBAjfC wyHrL9t8M8Ew09TDGXT WFyczwvdGQ+PHRkIHN0 iRrfCDzhFWQioU8eFXI gF9a0UcAxBoP6RAwrQ5 UkVQSdzbnvBw20nT6fQ nGdWqL1TKduF4ByxaI8 JKGvtMHgLSruFMP0X20 fo6G7CSJiVYExNWU8oZ R4xT9ekQaapmtmpMDfw DsgdmVydGljYWwtYWxp N055RBEfcWcbYkXomPN sZTwvdGQ+QLGzYMC2xD tyUYcjNGAdkU8yTZHoR 9f7RdYmNpM2VRmmL8Bd DVRqsjwlSz04oQ9cOqR rAgT2JGzpM5ZlmpN0RW NbeWHuNIegTZY3O32bb 6P6OTDpYEHyIFA9vJP8 qZ3tfPeaedjdcEKyfFd gdmVydGljYWwtYWxpZ2 33IRKtoAirQyChG4Tcd mluZzwvdGQ+RB77sf38 V6FtUivnNhz6VTYeUYG 7zNL7bD2iJGOxGLmrl3 N9fBP2E1JmbiRreo2fx 0mfMICqONmuJ68zaUNw s6C5IFHyzRX7UUGulOt eVcTyoI61Eic+PGNvbG cxp1VqLydyw6esr0wfs Gi0NqZvPUZscdLhxGfc DKO1p6TbYs99G58aGEd pZHRoPSIzMCUiIHZhbG elrc3jcJ1oEy2+PGNvb GH6eZX9bL2mZvGwWnR9 ETykH628GjLpbBPpUxr tq9xmt9smrZf0LfDbBO VauzEeuYngGEH0w1IuO c14D1WxsHocm4JhCek9 zu28jQTkq7O2eNS5L6J hZGRpbmctbGVmdDogMC 2yZCHjyexsQCQbbS7pN OFeH9p4VwFeDgW4GBry A2KipiD6SFEtlUFdXUU arVBJqC0bpvwjk6jyss lqPxEmKRHrBTm2FFm8P LZbbLnnNpPhQIX6NjN5 YWN9mWMarP7qxPhpfqh hxJ0xAui+GQo4w9vhiK LgFJ6vdNX1TC35OL61w YFon9Y5uKI9Z3CpDRSr llqwokxogIY2MBSlQUQ nsB60Bc6woEikRr1tJY XzSWN7ABOrmNCdD9Vkw E6jFqDqZWMxBJTuC3Xg jKNyTYsmU811LFxzUdY 2MBLkgbQkB3GtQZIwwX iuVqG1i3P1Ff4NDC60Y Q35WJ52yERaq6G1pXU9 N7VrLLMvyuyottgepCK 0NMMtGYOoaS23Wr1fzV kbGm1wMUUyCAG2LXGej XWtC0CxyY6yEkFmSFJm QZCmE8GksXEfVJjiQ40 9WYffOrM1JHPpjyFzE7 JvLSMwiTkmOvY9d9E8T i3OKz18ZJ07JO99cWYg h2B2mGA4K2VgRKTcnvz spbajuMT9JEEfJNMikD 85Pq7jpWylZj4yQEWeV VY2IFVnlRDxO5MjbE6q AoRfXGXvTUFyE0JpaPQ tQJvzY351KTreRhS6UZ SxcxIwD6LqRMIghJxjZ mZ5d7Y2Mi0BQLsuhrj9 G8QtOkylaHN+PU74SJC rMK83bDIfqJPfe0mfwX r0OgBfCQMcJQC2hJmeC Wttu0DtPUEwY08zsMTc c2U6 (more content not included)... Normal [facility] Consent for Treatmenton Consent for Treatment [id number] Normal [facility] Priority Order-Faby 2021 Priority Order-STAT Comment Invalid Interpretation Code [facility] Comment on above: Result Comment: Rece ived Performed at: [facility] [address] [place], [place] [id number] Formerly [facility] Luiz Lancaster Performed By: #### S ARS-CoV-2, NATHAN, [id number] ####[facility] [address] [place] [address] SARS-CoV-2, NAAon 08-14-2021 SARS-CoV-2 (COVID-19) RNA NATHAN+probe Ql (Resp) Not detected Invalid Interpretation Code Not Detected [facility] Comment on above: Result Comment: This nucleic acid amplification test was developed and its performance characteristics determined by [employer]. Nucleic acid amplification tests include RT-PCR and TMA. This test has not been FDA cleared or approved. This test has been authorized by FDA under an Emergency Use Authorization (EUA). This test is only authorized for the duration of time the declaration that circumstances exist justifying the authorization of the emergency use of in vitro diagnostic tests for detection of SARS-CoV-2 virus and/or diagnosis of COVID-19 infection under section 564(b)(1) of the Act, 21 U.S.C. 360bbb-3(b) (1), unless the authorization is terminated or revoked sooner. When diagnostic testing is negative, the possibility of a false negative result should be considered in the context of a patient's recent exposures and the presence of clinical signs and symptoms consistent with COVID-19. An individual without symptoms of COVID-19 and who is not shedding SARS-CoV-2 virus would expect to have a negative (not detected) result in this assay. Performed at: [address] [id number] PhD Lena Danielson Performed By: #### S ARS-CoV-2, NATHAN, [id number] ####[facility] [address] [place] [address] Reference Laboratory Testing Ordered By: [employer] on 08-13-2021 SARS-CoV-2 (COVID-19) RNA NATHAN+probe Ql (Resp) Not detected Invalid Interpretation Code Not Detected [facility] [employer] Comment on above: Result Comment: This nucleic acid amplification test was developed and its performance characteristics determined by [employer]. Nucleic acid amplification tests include RT-PCR and TMA. This test has not been FDA cleared or approved. This test has been authorized by FDA under an Emergency Use Authorization (EUA). This test is only authorized for the duration of time the declaration that circumstances exist justifying the authorization of the emergency use of in vitro diagnostic tests for detection of SARS-CoV-2 virus and/or diagnosis of COVID-19 infection under section 564(b)(1) of the Act, 21 U.S.C. 360bbb-3(b) (1), unless the authorization is terminated or revoked sooner. When diagnostic testing is negative, the possibility of a false negative result should be considered in the context of a patient's recent exposures and the presence of clinical signs and symptoms consistent with COVID-19. An individual without symptoms of COVID-19 and who is not shedding SARS-CoV-2 virus would expect to have a negative (not detected) result in this assay. Performed at: [address] [id number] PhD Lena Danielson Vital Signs Date Time Vital Sign Value Performing Clinician Faci lity 07-05-2022 16:12-0500 Body temperature 98.24 [degF] Braxton Chapa [facility] 07-05-2022 16:12-0500 Diastolic blood pressure 66 mm[Hg] Barxton Eduard [facility] 07-05-2022 16:12-0500 Heart rate 91 /min Braxton Eduard [facility] 07-05-2022 16:12-0500 Respiratory rate 22 /min Braxton Eduard [facility] 07-05-2022 16:12-0500 SaO2% (BldA) [Mass fraction] 95 % Braxton Eduard [facility] 07-05-2022 16:12-0500 Systolic blood pressure 182 mm[Hg] Braxton Eduard [facility] 03-05-2022 14:46-0400 Diastolic blood pressure 82 mm[Hg] Braxton Eduard [facility] 03-05-2022 14:46-0400 Heart rate 96 /min Braxton Eduard [facility] 03-05-2022 14:46-0400 Mean blood pressure 104 mm[Hg] Braxton Eduard [facility] 03-05-2022 14:46-0400 Respiratory rate 20 /min Braxton Eduard [facility] 03-05-2022 14:46-0400 SaO2% (BldA) [Mass fraction] 96 % Braxton Eduard [facility] 03-05-2022 14:46-0400 Systolic blood pressure 148 mm[Hg] Braxton Eduard [facility] 03-05-2022 14:24-0400 Diastolic blood pressure 86 mm[Hg] Braxton Eduard [facility] 03-05-2022 14:24-0400 Heart rate 89 /min Braxton Eduard [facility] 03-05-2022 14:24-0400 Mean blood pressure 110 mm[Hg] Braxton Eduard [facility] 03-05-2022 14:24-0400 Respiratory rate 18 /min Braxton Eduard [facility] 03-05-2022 14:24-0400 SaO2% (BldA) [Mass fraction] 96 % Braxton Eduard [facility] 03-05-2022 14:24-0400 Systolic blood pressure 158 mm[Hg] Braxton Eduard [facility] 03-05-2022 13:47-0400 Diastolic blood pressure 131 mm[Hg] Braxton Eduard [facility] 03-05-2022 13:47-0400 Heart rate 98 /min Braxton Eduard [facility] 03-05-2022 13:47-0400 Mean blood pressure 158 mm[Hg] Braxton Eduard [facility] 03-05-2022 13:47-0400 Respiratory rate 18 /min Braxton Eduard [facility] 03-05-2022 13:47-0400 SaO2% (BldA) [Mass fraction] 98 % Braxton Eduard [facility] 03-05-2022 13:47-0400 Systolic blood pressure 212 mm[Hg] Braxton Eduard [facility] 03-05-2022 13:32-0400 Body temperature 98.06 [degF] Braxton Eduard [facility] 03-05-2022 13:32-0400 Heart rate 122 /min Braxton Eduard [facility] 03-05-2022 13:32-0400 Respiratory rate 16 /min Braxton Chapa [facility] Encounters Encounter Date Encounter Type Care Provider Facility Start: 07-09-2022 End: 07-10-[address] ELDON LOCKHART Facility:[facility] Start: 07-05-2022 End: 07-05-2022 Emergency department patient visit Braxton Chapa [place] Start: 07-05-2022 End: 07-05-2022 Emergency department patient visit Braxton Chapa [facility] Start: 03-05-2022 End: 03-05-2022 Emergency department patient visit Braxton Chapa [place] Start: 03-05-2022 End: 03-05-2022 Emergency department patient visit Braxton Chapa [facility] Start: 11-19-[address] ZAINAB JONES Facility :[facility] Start: 10-06-2021 End: 10-07-[address] ELDON LOCKHART Facility:[facility] Start: 08-19-2021 ambulatory Braxton Chapa Facility:[facility] Start: 08-13-2021 End: 11-12-2021 ambulatory SELF REFERRAL Facility[place] Start: 08-12-2021 End: 11-11-2021 Patient encounter procedure Jojo Burr [facility] Procedures Date Procedure Procedure Detail Performing Clinician Breast surgery (qual ifier value) Jojo Burr Comment on above: cysts removed ENDOMETRIOSIS Jojo Burr Payers Date Payer Category Payer Unknown [id number] 2.16.8 [id number] 1975 Unknown [id number] 2.16.8 [id number] 1976 Unknown [id number] 2.16.8 [id number] 1976 Unknown [id number] 2.16.84 [id number] 1976 Unknown [id number] 2.16.84 [id number] 1976 Unknown [id number] 2.16.84 [id number] 1959 Self-pay [id number] 1959 Unknown [id number] 1958 Unknown [id number] Social History Date Type Detail Facility Start: 06-16-2021 Tobacco smoking status Light t obacco smoker (finding) [facility] Sex Assigned At Female [facility] Medical Equipment Procedure Code Equipment Code Equipment Origin al Text Equipment Identifier Dates SubLingual, BID, Refill(s) 0 Start: 01-30-2020 Functional Status Date Assessment Result Facility 07-05-2022 Functional Status N/A [facility] 03-05-2022 Functional Status N/A [facility] Hospital Discharge instructions 07-05-2022 Note Date & Type Note Facility 07-05-2022 Hospital Discharg e instructions Patient Education 07/05/2022 17:16:55 Acute Bronchitis, Adult Acute Bronchitis, Adult Acute bronchitis is sudden (acute) swelling of the air tubes (bronchi) in the lungs. Acute bronchitis causes these tubes to fill with mucus, which can make it hard to breathe. It can also cause coughing or wheezing. In adults, acute bronchitis usually goes away within 2 weeks. A cough caused by bronchitis may last up to 3 weeks. Smoking, allergies, and asthma can make the condition worse. Repeated episodes of bronchitis may cause further lung problems, such as chronic obstructive pulmonary disease (COPD). What are the causes? This condition can be caused by germs and by substances that irritate the lungs, including: Cold and flu viruses. This condition is most often caused by the same virus that causes a cold. Bacteria. Exposure to tobacco smoke, dust, fumes, and air pollution. What increases the risk? This condition is more likely to develop in people who: Have close contact with someone with acute bronchitis. Are exposed to lung irritants, such as tobacco smoke, dust, fumes, and vapors. Have a weak immune system. Have a respiratory condition such as asthma. What are the signs or symptoms? Symptoms of this condition include: A cough. Coughing up clear, yellow, or green mucus. Wheezing. Chest congestion. Shortness of breath. A fever. Body aches. Chills. A sore throat. How is this diagnosed? This condition is usually diagnosed with a physical exam. During the exam, your health care provider may order tests, such as chest X-rays, to rule out other conditions. He or she may also: Test a sample of your mucus for bacterial infection. Check the level of oxygen in your blood. This is done to check for pneumonia. Do a chest X-ray or lung function testing to rule out pneumonia and other conditions. Perform blood tests. Your health care provider will also ask about your symptoms and medical history. How is this treated? Most cases of acute bronchitis clear up over time without treatment. Your health care provider may recommend: Drinking more fluids. Drinking more makes your mucus thinner, which may make it easier to breathe. Taking a medicine for a fever or cough. Taking an antibiotic medicine. Using an inhaler to help improve shortness of breath and to control a cough. Using a cool mist vaporizer or humidifier to make it easier to breathe. Follow these instructions at home: Medicines Take alwl-nma-iutcwdr and prescription medicines only as told by your health care provider. If you were prescribed an antibiotic, take it as told by your health care provider. Do not stop taking the antibiotic even if you start to feel better. General instructions Get plenty of rest. Drink enough fluids to keep your urine pale yellow. Avoid smoking and secondhand smoke. Exposure to cigarette smoke or irritating chemicals will make bronchitis worse. If you smoke and you need help quitting, ask your health care provider. Quitting smoking will help your lungs heal faster. Use an inhaler, cool mist vaporizer, or humidifier as told by your health care provider. Keep all follow-up visits as told by your health care provider. This is important. How is this prevented? To lower your risk of getting this condition again: Wash your hands often with soap and water. If soap and water are not available, use hand monitoring tech. Avoid contact with people who have cold symptoms. Try not to touch your hands to your mouth, nose, or eyes. Make sure to get the flu shot every year. Contact a health care provider if: Your symptoms do not improve in 2 weeks of treatment. Get help right away if: You cough up blood. You have chest pain. You have severe shortness of breath. You become dehydrated. You faint or keep feeling like you are going to faint. You keep vomiting. You have a severe headache. Your fever or chills gets worse. This information is not intended to replace advice given to you by your health care provider. Make sure you discuss any questions you have with your health care provider. Document Released: 09/01/2005 Document Revised: 06/07/2019 Document Reviewed: 01/12/2017 [employer] Patient Education 2020 [employer] 07/05/2022 17:16:55 Upper Respiratory Infection, Adult, Oajh-oq-Endt Upper Respiratory Infection, Adult An upper respiratory infection (URI) affects the nose, throat, and upper air passages. URIs are caused by germs (viruses). The most common type of URI is often called the common cold. Medicines cannot cure URIs, but you can do things at home to relieve your symptoms. URIs usually get better within 7 10 days. Follow these instructions at home: Activity Rest as needed. If you have a fever, stay home from work or school until your fever is gone, or until your doctor says you may return to work or school. ?You should stay home until you cannot spread the infection anymore (you are not contagious). ?Your doctor may have you wear a face mask so you have less risk of spreading the infection. Relieving symptoms Gargle with a salt-water mixture 3 4 times a day or as needed. To make a salt-water mixture, completely dissolve 1 tsp of salt in 1 cup of warm water. Use a cool-mist humidifier to add moisture to the air. This can help you breathe more easily. Eating and drinking Drink enough fluid to keep your pee (urine) pale yellow. Eat soups and other clear broths. General instructions Take kopd-uge-breukvt and prescription medicines only as told by your doctor. These include cold medicines, fever reducers, and cough suppressants. Do not use any products that contain nicotine or tobacco. These include cigarettes and e-cigarettes. If you need help quitting, ask your doctor. Avoid being where people are smoking (avoid secondhand smoke). Make sure you get regular shots and get the flu shot every year. Keep all follow-up visits as told by your doctor. This is important. How to avoid spreading infection to others Wash your hands often with soap and water. If you do not have soap and water, use hand monitoring tech. Avoid touching your mouth, face, eyes, or nose. Cough or sneeze into a tissue or your sleeve or elbow. Do not cough or sneeze into your hand or into the air. Contact a doctor if: You are getting worse, not better. You have any of these: ?A fever. ?Chills. ?Brown or red mucus in your nose. ?Yellow or brown fluid (discharge)coming from your nose. ?Pain in your face, especially when you bend forward. ?Swollen neck glands. ?Pain with swallowing. ?White areas in the back of your throat. Get help right away if: You have shortness of breath that gets worse. You have very bad or constant: ?Headache. ?Ear pain. ?Pain in your forehead, behind your eyes, and over your cheekbones (sinus pain). ?Chest pain. You have long-lasting (chronic) lung disease along with any of these: ?Wheezing. ?Long-lasting cough. ?Coughing up blood. ?A change in your usual mucus. You have a stiff neck. You have changes in your: ?Vision. ?Hearing. ?Thinking. ?Mood. Summary An upper respiratory infection (URI) is caused by a germ called a virus. The most common type of URI is often called the common cold. URIs usually get better within 7 10 days. Take exch-she-juazcxv and prescription medicines only as told by your doctor. This information is not intended to replace advice given to you by your health care provider. Make sure you discuss any questions you have with your health care provider. Document Released: 01/10/2009 Document Revised: 08/02/2019 Document Reviewed: 03/17/2018 [employer] Patient Education 2020 [employer]. Follow Up Care 07/05/2022 16:05:26 With:Ila Metz Address: [address] [facility] [address] [place] [address]- Business (1) When:07/08/2022 17:10:30 Comments:Follow-up with your primary care provider in 3 to 5 days. If symptoms worsen, do not improve, or new symptoms arise please report back to emergency department for further evaluation [facility] Evaluation + Plan note 07-05-2022 Note Date & Type Note Facility 07-05-2022 Evaluation + Plan note Extrac jumana from: Title:ED Note Author:Aba Mcmahon PA-C te:07/05/22 Bronchitis (J40: Bronchitis, not specified as acute or chronic) Upper respiratory infection (J06.9: Acute upper respiratory infection, unspecified) Orders: albuterol, 2.5 mg, 3 mL, Inhalation, q6hr for wheezing, 25 EA, Refill(s) 0, [facility]/pharmacy #[id number], 160, cm, 07/05/22 16:21:00 EST, Height/Length Dosing, 117.9, kg, 07/05/22 16:21:00 EST, Weight Dosing brompheniramine/dextromethorphan/PSE, 5 mL, Oral, QID for cough and congestion, 200 mL, Refill(s) 0, [id number], 160, cm, 07/05/22 16:21:00 EST, Height/Length Dosing, 117.9, kg, 07/05/22 16:21:00 EST, Weight Dosing predniSONE, 50 mg = 1 tab(s), Oral, Daily, X 5 day(s), # 5 tab(s), Refills(s) 0, Pharmacy: [facility]/pharmacy #[id number], 160, cm, 07/05/22 16:21:00 EST, Height/Length Dosing, 117.9, kg, 07/05/22 16:21:00 EST, Weight Dosing Future Scheduled Tests Laboratory* COVID-19 [place] [place]21 [facility] Discharge instructions 03-05-2022 Note Date & Type Note Facility 03-05-2022 Hospital Discharg e instructions Patient Education 03/05/2022 14:54:39 Nonspecific Chest Pain, Adult Nonspecific Chest Pain, Adult Chest pain can be caused by many different conditions. It can be caused by a condition that is life-threatening and requires treatment right away. It can also be caused by something that is not life-threatening. If you have chest pain, it can be hard to know the difference, so it is important to get help right away to make sure that you do not have a serious condition. Some life-threatening causes of chest pain include: Heart attack. A tear in the body's main blood vessel (aortic dissection). Inflammation around your heart (pericarditis). A problem in the lungs, such as a blood clot (pulmonary embolism) or a collapsed lung (pneumothorax). Some non life-threatening causes of chest pain include: Heartburn. Anxiety or stress. Damage to the bones, muscles, and cartilage that make up your chest wall. Pneumonia or bronchitis. Shingles infection (varicella-zoster virus). Chest pain can feel like: Pain or discomfort on the surface of your chest or deep in your chest. Crushing, pressure, aching, or squeezing pain. Burning or tingling. Dull or sharp pain that is worse when you move, cough, or take a deep breath. Pain or discomfort that is also felt in your back, neck, jaw, shoulder, or arm, or pain that spreads to any of these areas. Your chest pain may come and go. It may also be constant. Your health care provider will do lab tests and other studies to find the cause of your pain. Treatment will depend on the cause of your chest pain. Follow these instructions at home: Medicines Take pxkm-qsb-[id number] and prescription medicines only as told by your health care provider. If you were prescribed an antibiotic, take it as told by your health care provider. Do not stop taking the antibiotic even if you start to feel better. Lifestyle Rest as directed by your health care provider. Do not use any products that contain nicotine or tobacco, such as cigarettes and e-cigarettes. If you need help quitting, ask your health care provider. Do not drink alcohol. Make healthy lifestyle choices as recommended. These may include: ?Getting regular exercise. Ask your health care provider to suggest some activities that are safe for you. ?Eating a heart-healthy diet. This includes plenty of fresh fruits and vegetables, whole grains, low-fat (lean) protein, and low-fat dairy products. A dietitian can help you find healthy eating options. ?Maintaining a healthy weight. ?Managing any other health conditions you have, such as high blood pressure (hypertension) or diabetes. ?Reducing stress, such as with yoga or relaxation techniques. General instructions Pay attention to any changes in your symptoms. Tell your health care provider about them or any new symptoms. Avoid any activities that cause chest pain. Keep all follow-up visits as told by your health care provider. This is important. This includes visits for any further testing if your chest pain does not go away. Contact a health care provider if: Your chest pain does not go away. You feel depressed. You have a fever. Get help right away if: Your chest pain gets worse. You have a cough that gets worse, or you cough up blood. You have severe pain in your abdomen. You faint. You have sudden, unexplained chest discomfort. You have sudden, unexplained discomfort in your arms, back, neck, or jaw. You have shortness of breath at any time. You suddenly start to sweat, or your skin gets clammy. You feel nausea or you vomit. You suddenly feel lightheaded or dizzy. You have severe weakness, or unexplained weakness or fatigue. Your heart begins to beat quickly, or it feels like it is skipping beats. These symptoms may represent a serious problem that is an emergency. Do not wait to see if the symptoms will go away. Get medical help right away. Call your local emergency services (911 in the [place] Do not drive yourself to the hospital. Summary Chest pain can be caused by a condition that is serious and requires urgent treatment. It may also be caused by something that is not life-threatening. If you have chest pain, it is very important to see your health care provider. Your health care provider may do lab tests and other studies to find the cause of your pain. Follow your health care provider's instructions on taking medicines, making lifestyle changes, and getting emergency treatment if symptoms become worse. Keep all follow-up visits as told by your health care provider. This includes visits for any further testing if your chest pain does not go away. This information is not intended to replace advice given to you by your health care provider. Make sure you discuss any questions you have with your health care provider. Document Released: 05/04/2006 Document Revised: 01/25/2019 Document Reviewed: 01/25/2019 [employer] Patient Education 2020 [employer] 03/05/2022 14:54:39 Hypertension, Adult Hypertension, Adult High blood pressure (hypertension) is when the force of blood pumping through the arteries is too strong. The arteries are the blood vessels that carry blood from the heart throughout the body. Hypertension forces the heart to work harder to pump blood and may cause arteries to become narrow or stiff. Untreated or uncontrolled hypertension can cause a heart attack, heart failure, a stroke, kidney disease, and other problems. A blood pressure reading consists of a higher number over a lower number. Ideally, your blood pressure should be below 120/80. The first ( top ) number is called the systolic pressure. It is a measure of the pressure in your arteries as your heart beats. The second ( bottom ) number is called the diastolic pressure. It is a measure of the pressure in your arteries as the heart relaxes. What are the causes? The exact cause of this condition is not known. There are some conditions that result in or are related to high blood pressure. What increases the risk? Some risk factors for high blood pressure are under your control. The following factors may make you more likely to develop this condition: Smoking. Having type 2 diabetes mellitus, high cholesterol, or both. Not getting enough exercise or physical activity. Being overweight. Having too much fat, sugar, calories, or salt (sodium) in your diet. Drinking too much alcohol. Some risk factors for high blood pressure may be difficult or impossible to change. Some of these factors include: Having chronic kidney disease. Having a family history of high blood pressure. Age. Risk increases with age. Race. You may be at higher risk if you are . Gender. Men are at higher risk than women before age 45. After age 65, women are at higher risk than men. Having obstructive sleep apnea. Stress. What are the signs or symptoms? High blood pressure may not cause symptoms. Very high blood pressure (hypertensive crisis) may cause: Headache. Anxiety. Shortness of breath. Nosebleed. Nausea and vomiting. Vision changes. Severe chest pain. Seizures. How is this diagnosed? This condition is diagnosed by measuring your blood pressure while you are seated, with your arm resting on a flat surface, your legs uncrossed, and your feet flat on the floor. The cuff of the blood pressure monitor will be placed directly against the skin of your upper arm at the level of your heart. It should be measured at least twice using the same arm. Certain conditions can cause a difference in blood pressure between your right and left arms. Certain factors can cause blood pressure readings to be lower or higher than normal for a short period of time: When your blood pressure is higher when you are in a health care provider's office than when you are at home, this is called white coat hypertension. Most people with this condition do not need medicines. When your blood pressure is higher at home than when you are in a health care provider's office, this is called masked hypertension. Most people with this condition may need medicines to control blood pressure. If you have a high blood pressure reading during one visit or you have normal blood pressure with other risk factors, you may be asked to: Return on a different day to have your blood pressure checked again. Monitor your blood pressure at home for 1 week or longer. If you are diagnosed with hypertension, you may have other blood or imaging tests to help your health care provider understand your overall risk for other conditions. How is this treated? This condition is treated by making healthy lifestyle changes, such as eating healthy foods, exercising more, and reducing your alcohol intake. Your health care provider may prescribe medicine if lifestyle changes are not enough to get your blood pressure under control, and if: Your systolic blood pressure is above 130. Your diastolic blood pressure is above 80. Your personal target blood pressure may vary depending on your medical conditions, your age, and other factors. Follow these instructions at home: Eating and drinking Eat a diet that is high in fiber and potassium, and low in sodium, added sugar, and fat. An example eating plan is called the DASH (Dietary Approaches to Stop Hypertension) diet. To eat this way: ?Eat plenty of fresh fruits and vegetables. Try to fill one half of your plate at each meal with fruits and vegetables. ?Eat whole grains, such as whole-wheat pasta, brown rice, or whole-grain bread. Fill about one fourth of your plate with whole grains. ?Eat or drink low-fat dairy products, such as skim milk or low-fat yogurt. ?Avoid fatty cuts of meat, processed or cured meats, and poultry with skin. Fill about one fourth of your plate with lean proteins, such as fish, chicken without skin, beans, eggs, or tofu. ?Avoid pre-made and processed foods. These tend to be higher in sodium, added sugar, and fat. Reduce your daily sodium intake. Most people with hypertension should eat less than 1,500 mg of sodium a day. Do not drink alcohol if: ?Your health care provider tells you not to drink. ?You are , may be , or are planning to become . If you drink alcohol: ?Limit how much you use to: ?0 1 drink a day for women. ?0 2 drinks a day for men. ?Be aware of how much alcohol is in your drink. In the [place] one drink equals one 12 oz bottle of beer (355 mL), one 5 oz glass of wine (148 mL), or one 1 oz glass of hard liquor (44 mL). Lifestyle Work with your health care provider to maintain a healthy body weight or to lose weight. Ask what an ideal weight is for you. Get at least 30 minutes of exercise most days of the week. Activities may include walking, swimming, or biking. Include exercise to strengthen your muscles (resistance exercise), such as Pilates or lifting weights, as part of your weekly exercise routine. Try to do these types of exercises for 30 minutes at least 3 days a week. Do not use any products that contain nicotine or tobacco, such as cigarettes, e-cigarettes, and chewing tobacco. If you need help quitting, ask your health care provider. Monitor your blood pressure at home as told by your health care provider. Keep all follow-up visits as told by your health care provider. This is important. Medicines Take yebf-tpe-ehfpesa and prescription medicines only as told by your health care provider. Follow directions carefully. Blood pressure medicines must be taken as prescribed. Do not skip doses of blood pressure medicine. Doing this puts you at risk for problems and can make the medicine less effective. Ask your health care provider about side effects or reactions to medicines that you should watch for. Contact a health care provider if you: Think you are having a reaction to a medicine you are taking. Have headaches that keep coming back (recurring). Feel dizzy. Have swelling in your ankles. Have trouble with your vision. Get help right away if you: Develop a severe headache or confusion. Have unusual weakness or numbness. Feel faint. Have severe pain in your chest or abdomen. Vomit repeatedly. Have trouble breathing. Summary Hypertension is when the force of blood pumping through your arteries is too strong. If this condition is not controlled, it may put you at risk for serious complications. Your personal target blood pressure may vary depending on your medical conditions, your age, and other factors. For most people, a normal blood pressure is less than 120/80. Hypertension is treated with lifestyle changes, medicines, or a combination of both. Lifestyle changes include losing weight, eating a healthy, low-sodium diet, exercising more, and limiting alcohol. This information is not intended to replace advice given to you by your health care provider. Make sure you discuss any questions you have with your health care provider. Document Released: 07/25/2006 Document Revised: 04/04/2019 Document Reviewed: 04/04/2019 [employer] Patient Education 2020 [employer]. Follow Up Care 03/05/2022 13:29:56 With:Cameron Moon Address: [address] [place] [address] [place] [address] Business (1) When:03/08/2022 14:37:12 [facility] Evaluation + Plan note 03-05-2022 Note Date & Type Note Facility 03-05-2022 Evaluation + Plan note Extrac jumana from: Title:ED Note Author:Ho Camargo PA-C te:03/05/22 Chest pain (R07.9: Chest makenna n, unspecified) Hypertension (I10: Essential (primary) hypertension) Orders: acetaminophen, 975 mg = 3 tab(s), Tab, Oral, Once, Stop date 03/05/22 14:36:00 EDT, STAT, Start date 03/05/22 14:36:00 EDT, 03/05/22 14:36:00 EDT labetalol, 10 mg = 2 mL, Injection, IV Push, Once, Stop date 03/05/22 14:18:00 EDT, STAT, Start date 03/05/22 14:18:00 EDT, 03/05/22 14:18:00 EDT Automated Diff Basic Metabolic Panel CBC w/ Auto Diff D-Dimer ED Cardiac Monitoring eGFR Oxygen Saturation Oxygen Therapy PT & PTT Saline Lock Insert Troponin 0 Hr. XR Chest Single View Future Scheduled Tests Laboratory* [place]/13/21 [facility] Evaluation + Plan note 08-13-2021 Laboratory Note Date & Type Note Facility 08-13-2021 Evaluation + Plan note Future Scheduled TestsC[place] 08/13/21 [facility] Hospital course Narrative Note Date & Type Note Facility Hospital course Narrative No data available for this section [facility] Hospital Discharge instructions Note Date & Type Note Facility Hospital Discharge instructions No data available for this section [facility] Progress note Note Date & Type Note Facility Progress note No data available for this section [facility] Summary Purpose Family History No Family History Records FoundNo Family History Records Found Advance Directives No Advanced Directives Records FoundNo Advanced Directives Records Found Additional Source Comments Patient Care team informatio n (unrecognized section and content) Personnel Name: Lashay GUILLAUME Ila David Address: Address: [address] [place] [address] [place], [facility], [facility] [address] INFORMATION SOURCE (unrecogn ized section and content) DATE CREATED AUTHOR 07/10/2022 [facility] DATE CREATED AUTHOR AUTHOR'S ORGANIZ ATION 07/19/2022 [facility] FOR RECORDS PERTAINING TO PATIENTS WHO ARE OR HAVE BEEN ENROLLED IN A CHEMICAL DEPENDENCY/SUBSTANCEABUSE PROGRAM, SOME INFORMATION MAY BE OMITTED. This clinical summary was aggregated from multiple sources. Caution should be exercised in using it in the provision of clinical care. This summary normalizes information from multiple sources, and as a consequence, information in this document may materially change the coding, format and clinical context of patient data. In addition, data may be omitted in some cases. CLINICAL DECISIONS SHOULD BE BASED ON THE PRIMARY CLINICAL RECORDS. [facility]. provides no warranty or guarantee of the accuracy or completeness of information in this document.
--- NOTE | 2024-01-30 04:01 | CT_ITS ---
The [address] [address] Patient Name: SHADI ORTIZ MRN: [id number]:[id number] date: 1975 Sex: F Assigned Patient Location: ER Current Patient Location: ER Accession/Order Number: [id number] Exam Date: 01/30/2024 04:27 Report Date: 01/30/2024 04:55 At the request of: ELENI SYLVESTER Procedure: CT abdomen pelvis wo con EXAM: CT abdomen pelvis wo con HISTORY: Right flank pain. COMPARISON: None. TECHNIQUE: Routine CT abdomen/pelvis without intravenous contrast. FINDINGS: Lower chest: Unremarkable. Liver: Enlarged and fatty infiltrated measuring 19.7 cm in longitudinal dimension. Gallbladder/biliary tree: The gallbladder is mildly dilated however otherwise unremarkable and there is no biliary dilatation. Pancreas: Unremarkable. Spleen: Mild splenomegaly measuring 14.1 cm in AP dimension. Adrenal glands: Unremarkable. Right kidney: Unremarkable. There is no renal or ureteral calculus or obstructive uropathy. Left kidney: There is a 0.2 cm calcification near the central sinus fat which is vascular. The left kidney and left ureter are otherwise unremarkable. Urinary bladder: The unopacified underdistended urinary bladder is unremarkable. Bowel: Moderate amount of stool within the colon. The colon, appendix, distal esophagus, stomach and small bowel are unremarkable. The bowel gas pattern is nonobstructive. Inflammation: There is no free air, free fluid or inflammatory reaction. Vasculature: Mild atheromatous calcification distal abdominal aorta and iliac arteries. The IVC is unremarkable. Lymphadenopathy: There are no pathologically enlarged lymph nodes. Pelvis: The uterus is unremarkable. There are a couple surgical clips within the left adnexal region. There is no surgical clip within the right adnexal region. Correlate with the surgical history. Musculoskeletal: Slight levoscoliosis. Discogenic degenerative changes at a few levels along the lumbosacral spine. CT/CT abdomen pelvis wo con IMPRESSION: There is no renal calculus or obstructive uropathy. The 0.2 cm calcification near the central sinus fat of the left kidney is vascular. The urinary bladder is unremarkable. The liver is enlarged and fatty infiltrated measuring 19.7 cm in longitudinal dimension. There is mild splenomegaly measuring 14.1 cm in AP dimension. Nonobstructive bowel gas pattern with a moderate amount of stool within the colon. The appendix is unremarkable. There is no free air, free fluid or inflammatory reaction. There are a couple surgical clips within the left adnexa region. There is no surgical clip within the right adnexal region. Correlate with the surgical history. Electronically authenticated by: OMKAR ZAPATA Date: 01/30/2024 04:55
[2024-01-30 04:13] LABS: Bilirubin Urine NEGATIVE (NEGATIVE); Blood Urine SMALL (NEGATIVE); Clarity Urine CLEAR (CLEAR); Color Urine LT. YELLOW (YELLOW); Glucose Urine UA NEGATIVE (NEGATIVE); Ketones Urine NEGATIVE (NEGATIVE); Leukocyte Esterase Urine TRACE (NEGATIVE); Nitrite Urine NEGATIVE (NEGATIVE); Protein Urine NEGATIVE (NEG/TRACE); Urobilinogen Urine 0.2 EU/dL (0.2-1.0); pH Urine 7.5 (5.0-9.0)
[2024-01-30 04:16] LABS: Urine Microscopic Indicated YES
[2024-01-30 04:21] LABS: Basophils Percent Auto 0.3 % (0.2-2.0); Eosinophils Absolute Auto 0.1 10^3/uL (0.0-0.7); Eosinophils Percent Auto 0.8 % (0.9-7.0); Hematocrit 44.4 % (36.0-48.0); Immature Granulocytes Abs Auto 0.05 10^3/uL (0.00-0.03); Immature Granulocytes Pct Auto 0.4 % (0.0-0.5); Lymphocytes Absolute Auto 0.9 10^3/uL (1.2-3.8); Lymphocytes Percent Auto 6.4 % (20.5-60.0); Mean Corpuscular HGB Conc 33.8 g/dL (29.9-35.2); Mean Corpuscular Hemoglobin 30.3 pg (26.7-34.0); Mean Corpuscular Volume 89.7 fL (81.0-99.0); Mean Platelet Volume 9.2 fL (9.5-13.5); Monocytes Absolute Auto 0.6 10^3/uL (0.3-0.8); Monocytes Percent Auto 4.4 % (1.7-12.0); Neutrophils Absolute Auto 12.5 10^3/uL (1.4-6.5); Neutrophils Percent Auto 87.7 % (43.0-75.0); Platelet Count 174 10^3/uL (150-450); Red Blood Count 4.95 10^6/uL (4.20-5.40); Red Cell Distribution Width 12.9 % (11.0-15.0); White Blood Count 14.2 10^3/uL (4.0-11.0)
[2024-01-30] MEDS: KETOROLAC TROMETHAMINE 30 MG/ML VIAL IVP (04:21)
[2024-01-30 04:22] LABS: Bacteria Urine SMALL #/HPF (NONE SEEN); Crystals Seen? None Seen #/HPF (None Seen); Mucus Urine SMALL (NONE SEEN); Squamous Epithelial Cell Urine FEW #/LPF (NONE/RARE); WBC Urine 20-50 #/HPF (NONE SEEN)
[2024-01-30 04:23] LABS: Cast Seen? NONE SEEN #/LPF (NONE SEEN); Urine Culture Indicated YES
[2024-01-30 04:35] LABS: Alanine Aminotransferase 52 U/L (14-59); Albumin Level 3.9 g/dL (3.4-5.0); Alkaline Phosphatase 124 U/L (46-116); Anion Gap 13.9; Aspartate Amino Transferase 27 U/L (15-37); BUN Creatinine Ratio 12.5; Bilirubin Total 0.8 mg/dL (0.2-1.0); Calcium 8.9 mg/dL (8.5-10.1); Carbon Dioxide 25.7 mmol/L (21.0-32.0); Chloride 100 mmol/L (98-107); Estimated GFR (African America >60 (>=60); Estimated GFR (Non-African Ame >60 (>=60); Globulin 4.1 g/dL; Glucose 114 mg/dL (74-106); Potassium 3.6 mmol/L (3.5-5.1); Sodium 136 mmol/L (136-145)
[2024-01-30] MEDS: CEFTRIAXONE 1,000 MG in 0.9 % SODIUM CHLORIDE 50 ML 100 MG IV (05:46)
[2024-01-30 06:29] VITALS: BP 121/74; PULSE 79; O2SAT 98
== END 2024-01-30 06:32 | disposition home or self-care (01) ==
PROVIDERS: Emergency Provider Internal Medicine; PCP Family Medicine
DX: N39.0 Urinary tract infection, site not specified (principal)
CPT/HCPCS: 36415; 74176; 80053; 81001; 83690; 85025; 87086; 87150; 87186; 96365; 96375; 99284; J0696; J1885